=== PATIENT | female | born 1950 | race Caucasian/White ===

== ENCOUNTER → 2016-11-02 | Outpatient (REF) | payer MEDICARE ==
[2016-11-05 00:06] LABS: Lyme Disease IgG/IgM Antibodie <0.91 ISR (0.00-0.90); Lyme Disease IgM Ab Quantitati <0.80 index (0.00-0.79); SJOGREN'S ANTI SS-A <0.2 AI (0.0-0.9); SJOGREN'S ANTI SS-B <0.2 AI (0.0-0.9)
== END ==
LOC: M LAB REF 17:11
PROVIDERS: ATTEND Nurse Practitioner Adult Health
DX: I73.00 Raynaud's syndrome without gangrene (principal); Z98.0 Intestinal bypass and anastomosis status; Z79.899 Other long term (current) drug therapy

== ENCOUNTER → 2016-11-22 | Outpatient (REF) | payer MEDICARE | LOC: M LAB REF 14:57 | PROVIDERS: ATTEND Nurse Practitioner Adult Health | DX: R10.9 Unspecified abdominal pain (principal); R19.7 Diarrhea, unspecified ==

== ENCOUNTER → 2018-06-18 | Outpatient (REF) | payer MEDICARE ==
[2018-06-18 18:16] LABS: FREE T3 2.9 PG/ML (2.2-4.0)
== END ==
LOC: M LAB REF 17:03
DX: E03.9 Hypothyroidism, unspecified (principal)
CPT/HCPCS: 84481

== ENCOUNTER → 2018-09-10 | Outpatient (REF) | payer MEDICARE | LOC: M LAB REF 12:14 | PROVIDERS: ATTEND Nurse Practitioner Adult Health | DX: R31.9 Hematuria, unspecified (principal); N39.0 Urinary tract infection, site not specified ==

== ENCOUNTER → 2018-11-06 | Outpatient (REF) | payer MEDICARE | LOC: M LAB REF 16:48 | PROVIDERS: ATTEND Internal Medicine | DX: N20.0 Calculus of kidney (principal) ==

== ENCOUNTER → 2018-11-06 | Outpatient (REF) | payer MEDICARE ==
[2018-11-06 13:40] LABS: INR 0.89; PROTHROMBIN TIME 12.1 SECONDS (12.1-14.4)
[2018-11-06 13:41] LABS: PARTIAL THROMBOPLASTIN TIME 26.6 SECONDS (25.4-37.6)
[2018-11-06 13:43] LABS: APPEARANCE, URINE CLEAR (CLEAR); BACTERIA, URINE AUTO NEGATIVE (NEGATIVE); BILIRUBIN, URINE AUTO NEGATIVE (NEGATIVE); BLOOD, URINE BLOOD 2+ (NEGATIVE); COLOR, URINE STRAW (YELLOW); GLUCOSE, URINE (UA) AUTO NEGATIVE (NEGATIVE); KETONE, URINE AUTO NEGATIVE (NEGATIVE); LEUKOCYTE ESTERASE, URINE AUTO NEGATIVE (NEGATIVE); MUCUS, URINE SMALL (NEGATIVE); NITRITE, URINE AUTO NEGATIVE (NEGATIVE); PROTEIN, URINE AUTO NEGATIVE (NEGATIVE); RBC, URINE AUTO 29 /HPF (0-3); SPECIFIC GRAVITY URINE AUTO 1.006 (1.002-1.035); SQUAMOUS EPITHELIAL CELL UR AU 0 /HPF (0-6); UROBILINOGEN, URINE AUTO 0.2 mg/dL (0.0-2.0); WBC, URINE AUTO 1 /HPF (0-3)
== END ==
LOC: M LAB REF 12:21
PROVIDERS: ATTEND Internal Medicine
DX: Z01.818 Encounter for other preprocedural examination (principal)

== ENCOUNTER → 2019-11-04 | Outpatient (REF) | payer MEDICARE ==
[2019-11-04 12:22] LABS: HEMATOCRIT 38.3 % (36.0-47.0); HEMOGLOBIN 12.9 g/dl (12.0-15.5); MEAN CORPUSCULAR HEMOGLOBIN 32.3 pg (27.0-33.0); MEAN CORPUSCULAR HGB CONC 33.7 g/dl (32.0-36.5); MEAN CORPUSCULAR VOLUME 95.8 fl (80.0-96.0); PLATELET COUNT, AUTOMATED 240 10^3/uL (150-450); WHITE BLOOD COUNT 5.7 10^3/uL (4.0-10.0)
[2019-11-04 12:37] LABS: ALBUMIN 3.8 GM/DL (3.2-5.2); BILIRUBIN,TOTAL 0.6 MG/DL (0.2-1.0); CALCIUM LEVEL 9.2 MG/DL (8.8-10.2); CREATININE FOR GFR 1.36 MG/DL (0.55-1.30); GLOMERULAR FILTRATION RATE 40.9 (>39); POTASSIUM SERUM 4.1 MEQ/L (3.5-5.1); THYROID STIMULATING HORMONE 16.5 uIU/ML (0.358-3.740); TOTAL 25(OH) VITAMIN D 45.3 NG/ML (30.0-100.0); TOTAL PROTEIN 7.4 GM/DL (6.4-8.2)
== END ==
LOC: M SFHCPLAZ 10:02
PROVIDERS: ATTEND Nurse Practitioner Family
DX: E03.9 Hypothyroidism, unspecified (principal); E55.9 Vitamin D deficiency, unspecified; K14.6 Glossodynia; Z98.84 Bariatric surgery status; M25.511 Pain in right shoulder; Z79.899 Other long term (current) drug therapy

== ENCOUNTER → 2019-11-26 | Outpatient (REF) | payer MEDICARE ==
[2019-11-26 15:02] LABS: ALBUMIN 4.1 GM/DL (3.2-5.2); BILIRUBIN,TOTAL 0.6 MG/DL (0.2-1.0); CALCIUM LEVEL 9.5 MG/DL (8.8-10.2); CHOLESTEROL RISK RATIO 2.582 (<5); CREATININE FOR GFR 1.05 MG/DL (0.55-1.30); FREE T4 1.17 NG/DL (0.76-1.46); GLOMERULAR FILTRATION RATE 55.2 (>39); PERCENT SATURATION 21.1 % (13.2-45.0); POTASSIUM SERUM 4.1 MEQ/L (3.5-5.1); THYROID STIMULATING HORMONE 1.25 uIU/ML (0.358-3.740); TOTAL PROTEIN 7.8 GM/DL (6.4-8.2)
[2019-11-26 16:13] LABS: HEMOGLOBIN A1c 5.4 %
== END ==
LOC: M SFHCPLAZ 12:04
PROVIDERS: ATTEND Nurse Practitioner Family
DX: Z00.00 Encounter for general adult medical examination without abnormal findings (principal); E03.9 Hypothyroidism, unspecified; E11.9 Type 2 diabetes mellitus without complications; Z13.220 Encounter for screening for lipoid disorders; Z98.84 Bariatric surgery status

== ENCOUNTER → 2019-12-06 | Outpatient (REF) | payer MEDICARE ==
[2019-12-06 15:07] LABS: CREATININE, URINE 22.6 MG/DL; MALB URINE SIEMENS < 5.0 MG/L; MAU/CREAT RATIO 22.1 MCG/MG (0.0-30.0)
== END ==
LOC: M SFHCPLAZ 12:46
PROVIDERS: ATTEND Nurse Practitioner Family
DX: E03.9 Hypothyroidism, unspecified (principal)

== ENCOUNTER → 2019-12-17 | Outpatient (CLI) | payer MEDICARE ==
[2019-12-17 14:09] LABS: HEMATOCRIT 38.4 % (36.0-47.0); HEMOGLOBIN 12.8 g/dl (12.0-15.5); MEAN CORPUSCULAR HEMOGLOBIN 31.5 pg (27.0-33.0); MEAN CORPUSCULAR HGB CONC 33.3 g/dl (32.0-36.5); MEAN CORPUSCULAR VOLUME 94.6 fl (80.0-96.0); PLATELET COUNT, AUTOMATED 246 10^3/uL (150-450); RED BLOOD COUNT 4.06 10^6/uL (4.00-5.40); WHITE BLOOD COUNT 5.1 10^3/uL (4.0-10.0)
[2019-12-17 14:43] LABS: FREE T4 1.08 NG/DL (0.76-1.46); IRON (FE) 67 UG/DL (50-170); THYROID STIMULATING HORMONE 0.918 uIU/ML (0.358-3.740)
[2019-12-17 14:45] LABS: ESTRADIOL < 19.0 PG/ML; VITAMIN B12 LEVEL 972 PG/ML
[2019-12-17 14:46] LABS: FOLATE > 24.0 NG/ML
== END ==
LOC: M PLALAB 12:17
DX: K14.0 Glossitis (principal)

== ENCOUNTER → 2020-01-06 | Outpatient (REF) | payer MEDICARE | LOC: M LAB REF 17:11 | PROVIDERS: ATTEND Physician Assistant | DX: L91.8 Other hypertrophic disorders of the skin (principal) | CPT/HCPCS: 11200; 88305; G0463 ==

== ENCOUNTER → 2020-03-30 | Outpatient (CLI) | payer MEDICARE ==
[2020-03-30 14:48] LABS: ALBUMIN 3.7 GM/DL (3.2-5.2); ALT/SGPT 31 U/L (12-78); BILIRUBIN,TOTAL 0.4 MG/DL (0.2-1.0); BLOOD UREA NITROGEN 24 MG/DL (7-18); C REACTIVE PROTEIN QUANTITATIV 0.33 MG/DL (0.00-0.30); CALCIUM LEVEL 9.2 MG/DL (8.8-10.2); CARBON DIOXIDE LEVEL 34 MEQ/L (21-32); CHLORIDE LEVEL 84 MEQ/L (98-107); CREATININE FOR GFR 1.01 MG/DL (0.55-1.30); GLOMERULAR FILTRATION RATE 57.7 (>39); GLUCOSE, FASTING 116 MG/DL (70-100); POTASSIUM SERUM 3.1 MEQ/L (3.5-5.1); RHEUMATOID FACTOR QUANT < 10.0 IU/ML (<15.0); SODIUM LEVEL 125 MEQ/L (136-145); THYROID STIMULATING HORMONE 0.054 uIU/ML (0.358-3.740); TOTAL PROTEIN 7.1 GM/DL (6.4-8.2)
[2020-03-31 16:22] LABS: ANTINUCLEAR ANTIBODIES DIRECT Negative (Negative); SJOGREN'S ANTI SS-A <0.2 AI (0.0-0.9); SJOGREN'S ANTI SS-B <0.2 AI (0.0-0.9)
== END ==
LOC: M PLALAB 12:08
PROVIDERS: ATTEND Nurse Practitioner Adult Health
DX: R68.2 Dry mouth, unspecified (principal); E03.9 Hypothyroidism, unspecified; K14.9 Disease of tongue, unspecified; I10 Essential (primary) hypertension

== ENCOUNTER → 2020-06-08 | Outpatient (REF) | payer MEDICARE ==
[2020-06-08 14:18] LABS: ALBUMIN 3.7 GM/DL (3.2-5.2); BILIRUBIN,TOTAL 0.8 MG/DL (0.2-1.0); CREATININE FOR GFR 0.99 MG/DL (0.55-1.30); POTASSIUM SERUM 5.4 MEQ/L (3.5-5.1); THYROID STIMULATING HORMONE 4.38 uIU/ML (0.358-3.740); TOTAL PROTEIN 6.6 GM/DL (6.4-8.2)
== END ==
LOC: M SFHCPLAZ 10:03
PROVIDERS: ATTEND Nurse Practitioner Adult Health
DX: I10 Essential (primary) hypertension (principal); E03.9 Hypothyroidism, unspecified

== ENCOUNTER → 2020-06-30 | Outpatient (REF) | payer MEDICARE ==
[2020-06-30 12:35] LABS: ALBUMIN 4.1 GM/DL (3.2-5.2); BILIRUBIN,TOTAL 0.6 MG/DL (0.2-1.0); CALCIUM LEVEL 9.6 MG/DL (8.8-10.2); CREATININE FOR GFR 1.39 MG/DL (0.55-1.30); GLOMERULAR FILTRATION RATE 39.9 (>39); POTASSIUM SERUM 4.5 MEQ/L (3.5-5.1)
== END ==
LOC: M SFHCPLAZ 09:24
PROVIDERS: ATTEND Nurse Practitioner Adult Health
DX: I10 Essential (primary) hypertension (principal)

== ENCOUNTER 2020-07-16 09:27 | Outpatient (CLI) | payer MEDICARE ==
[2020-07-16] MEDS ORDERED: D5W IV ONE (09:30)
[2020-07-16] MEDS ORDERED: MAG SULF 1GM/100ML (MAG RUN) SINGLE DOSE IV ONE ×2 (09:30)
[2020-07-16] MEDS ORDERED: D5W/0.45% SODIUM CHLORIDE 1,000 ML IV SCH (09:30)
[2020-07-16] MEDS ORDERED: ONDANSETRON 4MG/2ML VIAL IV ONE (09:30)
[2020-07-16] MEDS ORDERED: diphenhydrAMINE 50MG/ML VIAL (J1200) IV ONE (09:30)
[2020-07-16] MEDS ORDERED: KETOROLAC 30 MG/ML 1ML VIAL IV ONE (09:30)
[2020-07-16] MEDS ORDERED: VALPROATE SOD IV ONE (09:30)
[2020-07-16 10:35] VITALS: BP 140/96
[2020-07-16 11:32] VITALS: BP 110/56
== END 2020-07-16 15:10 | disposition home or self-care (01) ==
LOC: M INFU 09:27
PROVIDERS: ATTEND Psychiatry & Neurology Neurology
DX: G43.109 Migraine with aura, not intractable, without status migrainosus (principal); Z88.2 Allergy status to sulfonamides
CPT/HCPCS: 96365; 96366; 96367; 96375; J1100; J1200; J1885; J2405; J3475

== ENCOUNTER → 2020-09-29 | Outpatient (REF) | payer MEDICARE ==
[2020-09-29 14:17] LABS: HEMATOCRIT 40.3 % (36.0-47.0); HEMOGLOBIN 13.2 g/dl (12.0-15.5); MEAN CORPUSCULAR HGB CONC 32.8 g/dl (32.0-36.5); MEAN CORPUSCULAR VOLUME 97.8 fl (80.0-96.0); PLATELET COUNT, AUTOMATED 254 10^3/uL (150-450); RED BLOOD COUNT 4.12 10^6/uL (4.00-5.40); WHITE BLOOD COUNT 6.4 10^3/uL (4.0-10.0)
[2020-09-29 14:53] LABS: ALBUMIN 3.9 GM/DL (3.2-5.2); BILIRUBIN,TOTAL 0.4 MG/DL (0.2-1.0); CREATININE FOR GFR 1.09 MG/DL (0.55-1.30); GLOMERULAR FILTRATION RATE 52.7 (>39); PERCENT SATURATION 23.8 % (13.2-45.0); POTASSIUM SERUM 4.5 MEQ/L (3.5-5.1); THYROID STIMULATING HORMONE 0.882 uIU/ML (0.358-3.740); TOTAL PROTEIN 7.3 GM/DL (6.4-8.2)
== END ==
LOC: M SFHCPLAZ 11:14
PROVIDERS: ATTEND Nurse Practitioner Adult Health
DX: E55.9 Vitamin D deficiency, unspecified (principal); I10 Essential (primary) hypertension; E03.9 Hypothyroidism, unspecified; Z98.84 Bariatric surgery status; M25.511 Pain in right shoulder

== ENCOUNTER → 2021-01-01 | Outpatient (CLI) | payer MEDICARE ==
--- NOTE | 2021-01-01 15:29 | REPPI ---
INDICATION: ATRAUMATIC NECK PAIN COMPARISON: None. TECHNIQUE: Eight views FINDINGS: There is advanced disc space narrowing seen C5-6 C6-7 with heavy anterior and posterior osteophytic ridging. There is some evidence of limitation of flexion and extension. The facet joints appear to be well aligned bilaterally. Hypertrophic degenerative facet and uncovertebral joint changes are present at every level bilaterally. There is bilateral foraminal narrowing C3-4, C4-5, and C5-6 which is mild to moderate and seen particularly at C5-6 on the left. Vertebral body height and alignment appears to be within normal limits. The dens cannot be effectively evaluated secondary to the superimposition of osseous structures and/or dentition on all views. IMPRESSION: Chronic changes as described above. Although this plain radiographic evaluation of the cervical spine shows no evidence of a fracture, it should be remembered that CT is much more sensitive than plain radiography of the C-spine in detecting fractures. If this examination was ordered to rule out a fracture then CT of the cervical spine is recommended. <Electronically signed by Delvin Bahena > 01/01/21 [id number]
== END ==
LOC: M PLAIMG 14:13
PROVIDERS: ATTEND Nurse Practitioner Adult Health
DX: M48.02 Spinal stenosis, cervical region (principal); M25.78 Osteophyte, vertebrae

== ENCOUNTER → 2021-01-01 | Outpatient (REF) | payer MEDICARE ==
[2021-01-01 17:13] LABS: HEMATOCRIT 37.2 % (36.0-47.0); HEMOGLOBIN 11.9 g/dl (12.0-15.5); MEAN CORPUSCULAR HEMOGLOBIN 32.9 pg (27.0-33.0); MEAN CORPUSCULAR VOLUME 102.8 fl (80.0-96.0); PLATELET COUNT, AUTOMATED 210 10^3/uL (150-450); RED BLOOD COUNT 3.62 10^6/uL (4.00-5.40); WHITE BLOOD COUNT 5.3 10^3/uL (4.0-10.0)
[2021-01-01 17:37] LABS: ALBUMIN 3.8 GM/DL (3.2-5.2); BILIRUBIN,TOTAL 0.4 MG/DL (0.2-1.0); CALCIUM LEVEL 8.6 MG/DL (8.8-10.2); CREATININE FOR GFR 1.16 MG/DL (0.55-1.30); PERCENT SATURATION 17.9 % (13.2-45.0); POTASSIUM SERUM 5.1 MEQ/L (3.5-5.1); TOTAL PROTEIN 6.8 GM/DL (6.4-8.2)
[2021-01-01 17:38] LABS: TOTAL 25(OH) VITAMIN D 29.6 NG/ML (30.0-100.0)
[2021-01-04 13:08] LABS: SSA SJOGRENS A <0.2 AI (0.0-0.9); SSB SJOGRENS B <0.2 AI (0.0-0.9)
== END ==
LOC: M SFHCPLAZ 14:15
PROVIDERS: ATTEND Nurse Practitioner Adult Health
DX: R68.2 Dry mouth, unspecified (principal); Z98.84 Bariatric surgery status; E55.9 Vitamin D deficiency, unspecified; E03.9 Hypothyroidism, unspecified; I10 Essential (primary) hypertension; Z79.899 Other long term (current) drug therapy

== ENCOUNTER → 2021-02-26 | Outpatient (CLI) | payer MEDICARE ==
[2021-02-26 13:58] LABS: ALBUMIN 3.6 GM/DL (3.2-5.2); BILIRUBIN,TOTAL 0.9 MG/DL (0.2-1.0); CALCIUM LEVEL 8.6 MG/DL (8.8-10.2); CREATININE FOR GFR 1.01 MG/DL (0.55-1.30); GLOMERULAR FILTRATION RATE 57.5 (>39); POTASSIUM SERUM 4.7 MEQ/L (3.5-5.1); TOTAL PROTEIN 6.9 GM/DL (6.4-8.2)
== END ==
LOC: M PLALAB 12:10
PROVIDERS: ATTEND Nurse Practitioner Adult Health
DX: R60.0 Localized edema (principal)

== ENCOUNTER → 2021-03-17 | Outpatient (CLI) | payer MEDICARE ==
--- NOTE | 2021-03-17 15:48 | REPMRS ---
Patient History The patient states she has not had a clinical breast exam in over a year. Patient is postmenopausal and is nulliparous. Family history of breast cancer at age 70 in maternal aunt. Reductions of both breasts, 1989. Patient states no breast complaints today. Patient has signed MRS History Sheet. Digital Woman Screen Mammo: March 17, 2021 - Exam #: [id number] Bilateral CC and MLO view(s) were taken. Technologist: Linda Torres, Technologist Prior study comparison: April 29, 2014, bilateral bilat screen digital mammo, performed at [facility] ([facility]). March 08, 2012, bilateral digital mammo screening bilat, performed at [facility]. FINDINGS: There are scattered fibroglandular densities. Screening. Digital screening (2D) mammography was performed bilaterally in the CC and MLO projections. Additionally, breast tomosynthesis (3D mammography) was performed bilaterally in the CC and MLO projections. Todays exam was compared to the prior exam/exams. By history, the patient has no complaints of a palpable breast abnormality or other significant breast complaints. The breasts are unchanged in size and shape. There are no sohail-soft tissue densities or spiculated masses. There is no internal architectural distortion. Once again, stable benign appearing calcifications are seen.There are no suspicious sohail-calcific clusters. Skin thickening or nipple retraction is not present. IMPRESSION: BI-RADS Category 2- Benign Findings. There is no evidence of malignant alteration of the breasts. Followup examination recommended in one year. The Volpara volumetric breast density category is B, there are scattered areas of fibroglandular densities. This mammogram was read with the assistance of [facility],an FDA approved computer aided detection system for mammography. The lifetime Tyrer-Cuzick score is 6.1 % Negative x-ray reports should not delay surgical consultation if a dominant or clinically suspicious mass is present. Not all breast cancers can be identified by mammography. Therefore, we recommend that you continue to perform regular breast self-examination and physical examination and then promptly contact your physician of any concerns or changes. Adenosis and dense breasts may obscure an underlying neoplasm. Assessment: BI-RADS/ACR category 2 mammogram. Benign Findings. Recommendation Routine screening mammogram of both breasts in 1 year. Electronically Signed By: Delvin Bahena DO 03/17/21 1545
== END ==
LOC: M WHC 14:01
PROVIDERS: ATTEND Nurse Practitioner Family
DX: Z12.31 Encounter for screening mammogram for malignant neoplasm of breast (principal)

== ENCOUNTER 2021-04-06 13:19 | Outpatient (RCR) | payer MEDICARE | END 2021-04-08 | LOC: M PT 13:19 | PROVIDERS: ATTEND Nurse Practitioner Adult Health | DX: I89.0 Lymphedema, not elsewhere classified (principal) ==

== ENCOUNTER 2021-04-27 13:14 | Outpatient (RCR) | payer MEDICARE | END 2021-05-09 | LOC: M PT 13:14 | PROVIDERS: ATTEND Nurse Practitioner Adult Health | DX: I89.0 Lymphedema, not elsewhere classified (principal) ==

== ENCOUNTER → 2021-05-18 | Outpatient (CLI) | payer MEDICARE ==
[2021-05-18 14:05] LABS: HEMATOCRIT 38.9 % (36.0-47.0); MEAN CORPUSCULAR HEMOGLOBIN 32.5 pg (27.0-33.0); MEAN CORPUSCULAR HGB CONC 33.4 g/dl (32.0-36.5); MEAN CORPUSCULAR VOLUME 97.3 fl (80.0-96.0); PLATELET COUNT, AUTOMATED 241 10^3/uL (150-450); WHITE BLOOD COUNT 5.7 10^3/uL (4.0-10.0)
[2021-05-18 15:03] LABS: PERCENT SATURATION 24.4 % (13.2-45.0); THYROID STIMULATING HORMONE 3.49 uIU/ML (0.358-3.740); TOTAL 25(OH) VITAMIN D 80.2 NG/ML (30.0-100.0)
== END ==
LOC: M PLALAB 10:51
PROVIDERS: ATTEND Nurse Practitioner Adult Health
DX: E55.9 Vitamin D deficiency, unspecified (principal); Z98.84 Bariatric surgery status; E03.9 Hypothyroidism, unspecified

== ENCOUNTER → 2021-05-18 | Outpatient (CLI) | payer MEDICARE ==
--- NOTE | 2021-05-18 12:51 | REPVR ---
PROCEDURE INFORMATION: Exam: MR Lumbar Spine Without Contrast Exam date and time: 05/18/2021 10:23 AM Age: 70 years old Clinical indication: Low back pain; Additional info: Radiculopathy TECHNIQUE: Imaging protocol: Multiplanar magnetic resonance images of the lumbar spine without intravenous contrast. COMPARISON: No relevant prior studies available. FINDINGS: Vertebrae: There is 3 mm of grade 1 retrolisthesis of L3 with respect to L4. There is 4 mm of grade 1 anterolisthesis of L4 with respect to L5. Normal vertebral body alignment is otherwise preserved. Vertebral body heights are within normal limits. Spinal cord: Normal signal. No cord compression. L1-L2: There is shallow disc bulging. There is mild facet hypertrophy. The spinal canal and neural foramina are patent. L2-L3: There is shallow disc bulging. There is moderate facet hypertrophy. There is trace fluid within the facet joints. There is mild right neural foraminal narrowing. L3-L4: There is diffuse disc bulging. There is moderate facet hypertrophy. There is moderate right and mild left neural foraminal narrowing. L4-L5: There is a diffuse disc bulge/uncovering related to listhesis. There is severe facet hypertrophy. There is severe canal stenosis, with a residual diameter of 3 mm. There is moderate to severe bilateral neural foraminal narrowing. L5-S1: There is shallow disc bulging. There is severe facet hypertrophy. There is mild right neural foraminal narrowing. Soft tissues: Unremarkable. IMPRESSION: Degenerative disc disease and spondylosis. At L4/5, changes contribute to severe acquired canal stenosis as well as moderate to severe bilateral neural foraminal narrowing. Electronically signed by: Emilia Hayden On 05/18/2021 12:51:25 PM
== END ==
LOC: M PLAIMG 09:28
PROVIDERS: ATTEND Pain Medicine Interventional Pain Medicine
DX: M54.16 Radiculopathy, lumbar region (principal); M43.16 Spondylolisthesis, lumbar region; M48.061 Spinal stenosis, lumbar region without neurogenic claudication; M51.27 Other intervertebral disc displacement, lumbosacral region; M51.36 Other intervertebral disc degeneration, lumbar region; M48.07 Spinal stenosis, lumbosacral region

== ENCOUNTER → 2021-05-18 | Outpatient (CLI) | payer MEDICARE ==
--- NOTE | 2021-05-18 14:21 | REP ---
INDICATION: SHORTNESS OF BREATH. COMPARISON: None. TECHNIQUE: PA and lateral FINDINGS: The superior mediastinal structures are midline. The cardiac silhouette is unremarkable in size, shape, and position. The diaphragmatic surfaces of the lungs are regular, and the costophrenic angles are clear. The pulmonary valdes are clear. The imaged osseous structures are intact. There is a right shoulder arthroplasty. IMPRESSION: There is no acute cardiopulmonary disease. <Electronically signed by Delvin Bahena > 05/18/21 0072
== END ==
LOC: M PLAIMG 09:37
PROVIDERS: ATTEND Nurse Practitioner Adult Health
DX: R06.02 Shortness of breath (principal)

== ENCOUNTER → 2021-05-24 | Outpatient (CLI) | payer MEDICARE ==
--- NOTE | 2021-05-24 15:48 | PFTRPT ---
Site: [facility], [address] [place] [address], [id number] ID: [id number] Name: KARLA BLACK Visit Date: 05/24/2021 Second ID: [id number] Referring Doctor: Nelda Thornton Reviewing Doctor: Marcelino Graves MD Compensation And Hris Analyst: Jac CHENEY RRT Age: 70 : 1950 Sex: Female Race: Height: 66.00 Inches Weight: 226.00 Lbs BSA: 2.11 Order IDs: [id number] Requested Test(s): <RESP-PFT.PFT B/A> Diagnosis: R06.02 test meet the ATS standards for acceptability and repeatability. Pt was given four puffs of albuterol for post bronchodilator. Review Status: Not Reviewed Pre-Bronch Post-Bronch Pred Actual %Pred Actual %Chng SPIROMETRY FVC (L) 3.18 2.41 75 2.45 1 FEV1 (L) 2.40 1.93 80 2.05 5 FEV1/FVC (%) 76 80 105 84 3 FEF 25% (L/sec) 4.90 5.78 117 6.27 8 FEF 50% (L/sec) 3.29 2.73 82 3.76 37 FEF 75% (L/sec) 0.94 0.66 70 0.85 29 FEF 25-75% (L/sec) 1.93 1.88 97 2.49 32 FEF Max (L/sec) 5.81 6.04 103 6.97 15 FIVC (L) 2.44 2.33 -4 FIF 50% (L/sec) 3.60 3.32 92 4.59 38 FIF Max (L/sec) 3.49 4.76 36 MVV (L/min) 89 76 85 Expiratory Time (sec) 6.46 6.06 -6 Back Extrap Vol (L) 0.09 0.10 8 Time To FEFmax (sec) 0.084 0.082 -2 LUNG VOLUMES SVC (L) 3.02 2.45 81 IC (L) 2.27 1.86 81 ERV (L) 0.75 0.59 79 TGV (L) 3.08 3.08 100 RV (Pleth) (L) 2.33 2.49 106 TLC (Pleth) (L) 5.35 4.94 92 RV/TLC (Pleth) (%) 44 50 114 DIFFUSION DLCOunc (ml/min/mmHg) 21.12 21.43 101 DL/VA (ml/min/mmHg/L) 3.95 5.20 131 VA (L) 5.35 4.12 76 BHT (sec) 9.73 IVC (L) 2.26 TLC (SB) (L) 4.27 AIRWAYS RESISTANCE Raw (cmH2O/L/s) 1.86 0.90 48 Gaw (L/s/cmH2O) 1.03 1.14 110 sRaw (cmH2O*s) 4.76 2.84 59 sGaw (1/cmH2O*s) 0.20 0.36 179
--- NOTE | 2021-05-25 09:18 | ECHO ---
ECHOCARDIOGRAM DATE OF PROCEDURE: 05/24/2021 Age: 70 Gender: Female Height: 66 inches Weight: 229 pounds Body Surface Area: 2.12 m2 PATIENT LOCATION: Outpatient. REFERRING PROVIDER: Nelda Lambert, Adult Nurse Practitioner. INDICATION: Shortness of breath. MEASUREMENTS: 2D Measurements: RV 3.8 cm LV 4.7 cm Septum 1.0 cm Posterior wall 1.0 cm Aortic Root 3.0 cm LA 4.2 cm LVEF 75% Doppler Measurements: AV 1.58 m/s LVOT 1.32 m/s MV-E 102, A 128, EA ratio 0.8 Early mitral deceleration time 148 msec E prime medial 9.9, A prime medial 17, E prime lateral 7.8 Average E/E prime ratio 11.5/PCWP 16.2 mmHg PV - 0.8 m/s Pulmonary artery acceleration time 92 msec PASP 42 mmHg IVC 2.2 cm COMMENTS: Normal sinus rhythm without intraventricular conduction disturbance. M-mode and 2-dimensional echocardiography was performed with pulse, continuous wave, color flow, and tissue Doppler studies. Normal left ventricular size, wall thickness, and hyperkinetic wall motion. Mildly dilated left atrium with grade 1 LV diastolic dysfunction and current estimated mean left atrial pressure upper limits of normal. Normal right heart chamber sizes and wall motion with Doppler evidence of moderate pulmonary hypertension. IVC size was upper limits of normal to mildly dilated with adequate respiratory collapse in keeping with estimated central venous pressure upper limits of normal. Normal aortic dimensions. Mild aortic valvular sclerosis without stenosis and only trace insufficiency. Moderate mitral annular calcification without inflow tract obstruction and mild mitral insufficiency. Normal appearing tricuspid valve with trace insufficiency. No apparent intracardiac mass or pericardial effusion.
== END ==
LOC: M CARPUL 08:34
PROVIDERS: ATTEND Nurse Practitioner Adult Health
DX: R06.02 Shortness of breath (principal)

== ENCOUNTER → 2021-05-31 | Outpatient (CLI) | payer MEDICARE ==
[~2021-05-31] MED LIST: METHACHOLINE KIT (J7674) INH ONE
--- NOTE | 2021-05-31 10:48 | PFTRPT ---
Site: [facility], [address] [place], [address] ID: [id number] Name: KARLA BLACK Visit Date: 05/31/2021 Second ID: [id number] Referring Doctor: Nelda Thornton Reviewing Doctor: Marcelino Graves MD Learning Coordinator: Jac CHENEY RRT Age: 70 : 1950 Sex: Female Race: Height: 66.00 Inches Weight: 226.00 Lbs BSA: 2.11 Order IDs: [id number] Requested Test(s): <RESP-PFT.METH CHAL> Diagnosis: R06.02 of albuterol for post bronchodilator. Review Status: Not Reviewed Pre-Bronch Post-Bronch Pred Actual %Pred Actual %Chng SPIROMETRY FVC (L) 3.18 2.33 73 2.25 -3 FEV1 (L) 2.40 1.94 80 1.84 -5 FEV1/FVC (%) 76 83 109 82 -2 FEF 25% (L/sec) 4.90 6.21 126 5.70 -8 FEF 50% (L/sec) 3.29 3.20 97 2.25 -29 FEF 75% (L/sec) 0.94 0.82 86 0.51 -36 FEF 25-75% (L/sec) 1.93 2.25 116 1.68 -25 FEF Max (L/sec) 5.81 6.26 107 6.05 -3 FIVC (L) 2.38 1.75 -26 FIF 50% (L/sec) 3.60 3.90 108 2.67 -31 FIF Max (L/sec) 4.00 3.49 -12 Expiratory Time (sec) 6.68 7.03 5 Back Extrap Vol (L) 0.09 0.08 -11 Time To FEFmax (sec) 0.087 0.071 -19
== END ==
LOC: M CARPUL 10:00
PROVIDERS: ATTEND Nurse Practitioner Adult Health
DX: R06.02 Shortness of breath (principal)
CPT/HCPCS: 94070; 95070; J7674

== ENCOUNTER → 2021-09-23 | Outpatient (CLI) | payer MEDICARE | LOC: M PLAIMG 16:05 | PROVIDERS: ATTEND Internal Medicine Hematology | DX: M25.512 Pain in left shoulder (principal) ==

== ENCOUNTER → 2021-11-17 | Outpatient (CLI) | payer MEDICARE ==
[2021-11-17 15:22] LABS: HEMATOCRIT 37.4 % (36.0-47.0); HEMOGLOBIN 12.5 g/dl (12.0-15.5); MEAN CORPUSCULAR HEMOGLOBIN 33.1 pg (27.0-33.0); MEAN CORPUSCULAR HGB CONC 33.4 g/dl (32.0-36.5); MEAN CORPUSCULAR VOLUME 98.9 fl (80.0-96.0); PLATELET COUNT, AUTOMATED 234 10^3/uL (150-450); RED BLOOD COUNT 3.78 10^6/uL (4.00-5.40); WHITE BLOOD COUNT 4.1 10^3/uL (4.0-10.0)
[2021-11-17 15:56] LABS: BILIRUBIN,TOTAL 0.8 MG/DL (0.2-1.0); CALCIUM LEVEL 9.5 MG/DL (8.8-10.2); CHOLESTEROL RISK RATIO 1.481 (<5); CREATININE FOR GFR 1.21 MG/DL (0.55-1.30); GLOMERULAR FILTRATION RATE 46.6 (>39); PERCENT SATURATION 38.3 % (13.2-45.0); POTASSIUM SERUM 4.8 MEQ/L (3.5-5.1); THYROID STIMULATING HORMONE 1.2 uIU/ML (0.358-3.740); TOTAL PROTEIN 7.3 GM/DL (6.4-8.2)
[2021-11-17 15:57] LABS: TOTAL 25(OH) VITAMIN D 86.3 NG/ML (30.0-100.0)
== END ==
LOC: M PLALAB 13:08
PROVIDERS: ATTEND Nurse Practitioner Adult Health
DX: Z00.00 Encounter for general adult medical examination without abnormal findings (principal); Z98.84 Bariatric surgery status; E03.9 Hypothyroidism, unspecified; E55.9 Vitamin D deficiency, unspecified; I10 Essential (primary) hypertension; Z79.899 Other long term (current) drug therapy

== ENCOUNTER → 2021-12-17 | Outpatient (CLI) | payer MEDICARE ==
[~2021-12-17] MED LIST changes: +ISOVUE-370 76% 100ML VIAL ONE; -METHACHOLINE KIT (J7674) INH ONE
== END ==
LOC: M PLAIMG 09:40
PROVIDERS: ATTEND Nurse Practitioner Adult Health
DX: R09.02 Hypoxemia (principal)
CPT/HCPCS: 71275; Q9967

== ENCOUNTER → 2022-04-19 | Outpatient (CLI) | payer MEDICARE ==
[2022-04-19 14:11] LABS: ALBUMIN 3.7 GM/DL (3.2-5.2); BILIRUBIN,TOTAL 0.5 MG/DL (0.2-1.0); CALCIUM LEVEL 9.6 MG/DL (8.8-10.2); CREATININE FOR GFR 1.13 MG/DL (0.55-1.30); GLOMERULAR FILTRATION RATE 50.4 (>39); POTASSIUM SERUM 4.3 MEQ/L (3.5-5.1); TOTAL PROTEIN 6.9 GM/DL (6.4-8.2)
== END ==
LOC: M PLALAB 11:01
PROVIDERS: ATTEND Nurse Practitioner Adult Health
DX: R06.02 Shortness of breath (principal); I10 Essential (primary) hypertension

== ENCOUNTER → 2022-07-13 | Outpatient (CLI) | payer MEDICARE ==
[2022-07-13 15:37] LABS: HEMATOCRIT 37.1 % (36.0-47.0); HEMOGLOBIN 12.5 g/dl (12.0-15.5); MEAN CORPUSCULAR HEMOGLOBIN 33.7 pg (27.0-33.0); MEAN CORPUSCULAR HGB CONC 33.7 g/dl (32.0-36.5); PLATELET COUNT, AUTOMATED 236 10^3/uL (150-450); RED BLOOD COUNT 3.71 10^6/uL (4.00-5.40); WHITE BLOOD COUNT 4.9 10^3/uL (4.0-10.0)
[2022-07-13 16:11] LABS: MAGNESIUM LEVEL 1.9 MG/DL (1.8-2.4)
[2022-07-13 16:12] LABS: IRON (FE) 77 UG/DL (50-170); PERCENT SATURATION 22.2 % (13.2-45.0); TOTAL IRON BINDING CAPACITY 347 UG/DL (250-425)
[2022-07-13 16:13] LABS: ALBUMIN 3.5 G/DL (3.2-5.2); ALKALINE PHOSPHATASE 106 U/L (46-116); ALT/SGPT 18 U/L (7.0-40); AST/SGOT 27 U/L (<34); BILIRUBIN,TOTAL 0.5 MG/DL (0.3-1.2); BLOOD UREA NITROGEN 32 MG/DL (9-23); CALCIUM LEVEL 9.3 MG/DL (8.3-10.6); CARBON DIOXIDE LEVEL 34 MMOL/L (20-31); CHLORIDE LEVEL 95 MMOL/L (98-107); CHOLESTEROL LEVEL 151 MG/DL (<200); CREATININE FOR GFR 1.13 MG/DL (0.55-1.30); FERRITIN 43.6 NG/ML (7.3-270.7); GLOMERULAR FILTRATION RATE 50.2 (>39); GLUCOSE, FASTING 130 MG/DL (74-106); HDL CHOLESTEROL 88.5 MG/DL (>40); LDL CHOLESTEROL 45.9 MG/DL (<100); NON-HDL-C 63 MG/DL; PHOSPHORUS LEVEL 3.8 MG/DL (2.4-5.1); POTASSIUM SERUM 3.9 MMOL/L (3.5-5.1); PTH INTACT 92.4 PG/ML (18.5-88.0); SODIUM LEVEL 137 MMOL/L (136-145); TOTAL PROTEIN 6.9 G/DL (5.7-8.2); TRIGLYCERIDES LEVEL 83 MG/DL (<150)
[2022-07-13 16:14] LABS: FOLATE > 24.00 NG/ML (>5.4); VITAMIN B12 LEVEL 1958 PG/ML (211-911)
== END ==
LOC: M PLALAB 13:31
PROVIDERS: ATTEND Family Medicine
DX: Z98.84 Bariatric surgery status (principal)

== ENCOUNTER → 2022-07-13 | Outpatient (CLI) | payer MEDICARE | LOC: M PLAIMG 13:05 | PROVIDERS: ATTEND Family Medicine | DX: R91.1 Solitary pulmonary nodule (principal) ==

== ENCOUNTER → 2022-08-19 | Outpatient (CLI) | payer MEDICARE ==
[~2022-08-19] MED LIST changes: +ISOVUE-370 76% 100ML VIAL As Ordered ONE; -ISOVUE-370 76% 100ML VIAL ONE
== END ==
LOC: M RAD 12:30
PROVIDERS: ATTEND Family Medicine
DX: M79.671 Pain in right foot (principal); M79.672 Pain in left foot; M16.0 Bilateral primary osteoarthritis of hip; L81.9 Disorder of pigmentation, unspecified; I51.7 Cardiomegaly; I25.10 Atherosclerotic heart disease of native coronary artery without angina pectoris; N20.0 Calculus of kidney; D25.9 Leiomyoma of uterus, unspecified; R60.9 Edema, unspecified
CPT/HCPCS: 75635; Q9967

== ENCOUNTER → 2022-09-07 | Outpatient (CLI) | payer MEDICARE | LOC: M RAD 14:11 | PROVIDERS: ATTEND Physician Assistant | DX: M79.89 Other specified soft tissue disorders (principal) ==

== ENCOUNTER → 2022-09-08 | Outpatient (CLI) | payer MEDICARE ==
[2022-09-08 14:10] LABS: ALBUMIN 3.4 G/DL (3.2-5.2); CALCIUM LEVEL 8.8 MG/DL (8.3-10.6); CREATININE FOR GFR 1.31 MG/DL (0.55-1.30); GLOMERULAR FILTRATION RATE 42.4 (>39); PHOSPHORUS LEVEL 4.5 MG/DL (2.4-5.1); POTASSIUM SERUM 3.5 MMOL/L (3.5-5.1)
== END ==
LOC: M PLALAB 11:40
PROVIDERS: ATTEND Physician Assistant
DX: M79.89 Other specified soft tissue disorders (principal)

== ENCOUNTER → 2022-09-08 | Outpatient (CLI) | payer MEDICARE ==
[2022-09-08 14:01] LABS: INR 0.92; PROTHROMBIN TIME 12.6 SECONDS (12.5-14.5)
[2022-09-08 14:14] LABS: THYROID STIMULATING HORMONE 0.045 uIU/ML (0.55-4.78); TOTAL 25(OH) VITAMIN D 83.7 NG/ML (20.0-100.0)
== END ==
LOC: M PLALAB 11:38
PROVIDERS: ATTEND Family Medicine
DX: R23.8 Other skin changes (principal); F33.41 Major depressive disorder, recurrent, in partial remission; E03.9 Hypothyroidism, unspecified

== ENCOUNTER → 2022-09-12 | Outpatient (CLI) | payer MEDICARE | LOC: M RAD 09:05 | PROVIDERS: ATTEND Physician Assistant | DX: M51.36 Other intervertebral disc degeneration, lumbar region (principal); M48.062 Spinal stenosis, lumbar region with neurogenic claudication; M54.16 Radiculopathy, lumbar region ==

== ENCOUNTER → 2022-09-20 | Outpatient (CLI) | payer MEDICARE | LOC: M PLAIMG 12:12 | PROVIDERS: ATTEND Neurological Surgery | DX: M51.37 Other intervertebral disc degeneration, lumbosacral region (principal); M43.16 Spondylolisthesis, lumbar region; M48.062 Spinal stenosis, lumbar region with neurogenic claudication ==

== ENCOUNTER → 2022-09-20 | Outpatient (CLI) | payer MEDICARE ==
[2022-09-20 15:31] LABS: BASO % 0.6 % (0.0-1.0); EOS # 0.2 10^3/uL (0.0-0.5); EOS % 4.4 % (0.0-3.0); HEMATOCRIT 35.5 % (36.0-47.0); HEMOGLOBIN 11.3 g/dl (12.0-15.5); LYMPH # 1.3 10^3/uL (1.5-5.0); LYMPH % 27.9 % (24.0-44.0); MEAN CORPUSCULAR HEMOGLOBIN 32.4 pg (27.0-33.0); MEAN CORPUSCULAR HGB CONC 31.8 g/dl (32.0-36.5); MEAN CORPUSCULAR VOLUME 101.7 fl (80.0-96.0); MONO # 0.5 10^3/uL (0.0-0.8); MONO % 9.9 % (2.0-8.0); NEUTROPHILS # 2.7 10^3/uL (1.5-8.5); PLATELET COUNT, AUTOMATED 218 10^3/uL (150-450); RED BLOOD COUNT 3.49 10^6/uL (4.00-5.40); WHITE BLOOD COUNT 4.7 10^3/uL (4.0-10.0)
[2022-09-20 15:38] LABS: ALBUMIN 3.4 G/DL (3.2-5.2); BILIRUBIN,TOTAL 0.5 MG/DL (0.3-1.2); CALCIUM LEVEL 8.7 MG/DL (8.3-10.6); CREATININE FOR GFR 1.16 MG/DL (0.55-1.30); GLOMERULAR FILTRATION RATE 48.8 (>39); POTASSIUM SERUM 4.6 MMOL/L (3.5-5.1); TOTAL PROTEIN 6.3 G/DL (5.7-8.2)
[2022-09-20 15:55] LABS: TOTAL PROTEIN,RANDOM URINE 7.5 MG/DL (0.0-14.0)
[2022-09-20 16:00] LABS: CREATININE,RANDOM URINE 15.8 MG/DL
== END ==
LOC: M PLALAB 13:20
PROVIDERS: ATTEND Physician Assistant
DX: M79.89 Other specified soft tissue disorders (principal)

== ENCOUNTER → 2022-09-20 | Outpatient (CLI) | payer MEDICARE | LOC: M PLAIMG 13:23 | PROVIDERS: ATTEND Physician Assistant | DX: M51.46 Schmorl's nodes, lumbar region (principal) ==

== ENCOUNTER → 2022-09-20 | Outpatient (CLI) | payer MEDICARE ==
[2022-09-20 15:31] LABS: BASO % 0.6 % (0.0-1.0); EOS # 0.2 10^3/uL (0.0-0.5); EOS % 4.5 % (0.0-3.0); HEMATOCRIT 34.9 % (36.0-47.0); HEMOGLOBIN 11.3 g/dl (12.0-15.5); LYMPH # 1.4 10^3/uL (1.5-5.0); LYMPH % 28.3 % (24.0-44.0); MEAN CORPUSCULAR HEMOGLOBIN 32.9 pg (27.0-33.0); MEAN CORPUSCULAR HGB CONC 32.4 g/dl (32.0-36.5); MEAN CORPUSCULAR VOLUME 101.7 fl (80.0-96.0); MONO # 0.6 10^3/uL (0.0-0.8); MONO % 11.2 % (2.0-8.0); NEUTROPHILS # 2.7 10^3/uL (1.5-8.5); PLATELET COUNT, AUTOMATED 211 10^3/uL (150-450); RED BLOOD COUNT 3.43 10^6/uL (4.00-5.40); WHITE BLOOD COUNT 4.9 10^3/uL (4.0-10.0)
[2022-09-20 15:35] LABS: CALCIUM LEVEL 8.8 MG/DL (8.3-10.6); CREATININE FOR GFR 1.17 MG/DL (0.55-1.30); GLOMERULAR FILTRATION RATE 48.3 (>39); POTASSIUM SERUM 4.1 MMOL/L (3.5-5.1)
[2022-09-20 15:49] LABS: INR 0.95; PROTHROMBIN TIME 12.9 SECONDS (12.5-14.5)
[2022-09-20 15:50] LABS: PARTIAL THROMBOPLASTIN TIME 27.8 SECONDS (24.8-34.2)
== END ==
LOC: M PLALAB 13:17
PROVIDERS: ATTEND Surgery Vascular Surgery
DX: I70.262 Atherosclerosis of native arteries of extremities with gangrene, left leg (principal)

== ENCOUNTER → 2022-10-07 | Outpatient (REF) | payer MEDICARE | LOC: M SFHCPLAZ 17:04 | PROVIDERS: ATTEND Physician Assistant | DX: R05.1 Acute cough (principal) ==

== ENCOUNTER → 2022-10-24 | Outpatient (CLI) | payer MEDICARE | LOC: M RAD 10:53 | PROVIDERS: ATTEND Physician Assistant | DX: M79.89 Other specified soft tissue disorders (principal); I87.8 Other specified disorders of veins ==

== ENCOUNTER → 2022-12-26 | Outpatient (REF) | payer MEDICARE | LOC: M LAB REF 16:43 | PROVIDERS: ATTEND Urology | DX: R82.998 Other abnormal findings in urine (principal) ==

== ENCOUNTER → 2023-01-02 | Outpatient (REF) | payer MEDICARE | LOC: M LAB REF 16:48 | PROVIDERS: ATTEND Urology | DX: N39.0 Urinary tract infection, site not specified (principal) ==

== ENCOUNTER → 2023-07-20 | Outpatient (REF) | payer MEDICARE ==
[2023-07-20 15:55] LABS: BASO % 0.3 % (0.0-1.0); EOS # 0.3 10^3/uL (0.0-0.5); EOS % 4.5 % (0.0-3.0); HEMATOCRIT 31.1 % (36.0-47.0); HEMOGLOBIN 9.7 g/dl (12.0-15.5); LYMPH % 33.8 % (24.0-44.0); MEAN CORPUSCULAR HEMOGLOBIN 29.4 pg (27.0-33.0); MEAN CORPUSCULAR HGB CONC 31.2 g/dl (32.0-36.5); MEAN CORPUSCULAR VOLUME 94.2 fl (80.0-96.0); MONO # 0.6 10^3/uL (0.0-0.8); MONO % 9.1 % (2.0-8.0); NEUTROPHILS # 3.2 10^3/uL (1.5-8.5); NEUTROPHILS % 52.1 % (36.0-66.0); PLATELET COUNT, AUTOMATED 284 10^3/uL (150-450)
[2023-07-20 16:03] LABS: ERYTHROCYTE SEDIMENTATION RATE 42 mm/hr (0-30)
[2023-07-20 16:16] LABS: C REACTIVE PROTEIN QUANTITATIV 3.1 MG/DL (<1.0)
[2023-07-20 16:17] LABS: BILIRUBIN,TOTAL 0.2 MG/DL (0.3-1.2); CALCIUM LEVEL 9.7 MG/DL (8.3-10.6); CREATININE FOR GFR 1.17 MG/DL (0.55-1.30); GLOMERULAR FILTRATION RATE 48.1 (>39)
== END ==
LOC: M SHH 15:30
PROVIDERS: ATTEND Internal Medicine
DX: R78.81 Bacteremia (principal); B95.5 Unspecified streptococcus as the cause of diseases classified elsewhere; G06.1 Intraspinal abscess and granuloma

== ENCOUNTER → 2023-07-24 | Outpatient (REF) | payer MEDICARE ==
[2023-07-24 13:31] LABS: BASO % 0.5 % (0.0-1.0); EOS # 0.3 10^3/uL (0.0-0.5); EOS % 3.8 % (0.0-3.0); HEMATOCRIT 30.4 % (36.0-47.0); HEMOGLOBIN 9.6 g/dl (12.0-15.5); LYMPH % 29.8 % (24.0-44.0); MEAN CORPUSCULAR HEMOGLOBIN 29.2 pg (27.0-33.0); MEAN CORPUSCULAR HGB CONC 31.6 g/dl (32.0-36.5); MEAN CORPUSCULAR VOLUME 92.4 fl (80.0-96.0); MONO # 0.7 10^3/uL (0.0-0.8); NEUTROPHILS # 3.7 10^3/uL (1.5-8.5); NEUTROPHILS % 55.7 % (36.0-66.0); PLATELET COUNT, AUTOMATED 248 10^3/uL (150-450); RED BLOOD COUNT 3.29 10^6/uL (4.00-5.40); WHITE BLOOD COUNT 6.6 10^3/uL (4.0-10.0)
[2023-07-24 13:39] LABS: ERYTHROCYTE SEDIMENTATION RATE 37 mm/hr (0-30)
[2023-07-24 13:50] LABS: C REACTIVE PROTEIN QUANTITATIV 4.1 MG/DL (<1.0)
[2023-07-24 13:52] LABS: ALBUMIN 2.9 G/DL (3.2-5.2); BILIRUBIN,TOTAL 0.2 MG/DL (0.3-1.2); CALCIUM LEVEL 9.1 MG/DL (8.3-10.6); CREATININE FOR GFR 1.26 MG/DL (0.55-1.30); GLOMERULAR FILTRATION RATE 44.2 (>39); POTASSIUM SERUM 3.5 MMOL/L (3.5-5.1)
== END ==
LOC: M SHH 12:41
PROVIDERS: ATTEND Internal Medicine
DX: G06.1 Intraspinal abscess and granuloma (principal); R78.81 Bacteremia; B95.5 Unspecified streptococcus as the cause of diseases classified elsewhere

== ENCOUNTER → 2023-07-31 | Outpatient (REF) | payer MEDICARE ==
[2023-07-31 16:56] LABS: BASO % 0.5 % (0.0-1.0); EOS # 0.2 10^3/uL (0.0-0.5); EOS % 3.8 % (0.0-3.0); HEMATOCRIT 33.3 % (36.0-47.0); HEMOGLOBIN 10.4 g/dl (12.0-15.5); LYMPH # 2.6 10^3/uL (1.5-5.0); LYMPH % 43.2 % (24.0-44.0); MEAN CORPUSCULAR HEMOGLOBIN 28.9 pg (27.0-33.0); MEAN CORPUSCULAR HGB CONC 31.2 g/dl (32.0-36.5); MEAN CORPUSCULAR VOLUME 92.5 fl (80.0-96.0); MONO # 0.5 10^3/uL (0.0-0.8); MONO % 8.5 % (2.0-8.0); NEUTROPHILS # 2.7 10^3/uL (1.5-8.5); NEUTROPHILS % 43.8 % (36.0-66.0); PLATELET COUNT, AUTOMATED 261 10^3/uL (150-450); WHITE BLOOD COUNT 6.1 10^3/uL (4.0-10.0)
[2023-07-31 17:07] LABS: ERYTHROCYTE SEDIMENTATION RATE 68 mm/hr (0-30)
[2023-07-31 17:20] LABS: C REACTIVE PROTEIN QUANTITATIV 3.2 MG/DL (<1.0)
[2023-07-31 17:22] LABS: ALBUMIN 2.9 G/DL (3.2-5.2); BILIRUBIN,TOTAL 0.2 MG/DL (0.3-1.2); CALCIUM LEVEL 9.4 MG/DL (8.3-10.6); CREATININE FOR GFR 1.15 MG/DL (0.55-1.30); GLOMERULAR FILTRATION RATE 49.1 (>39); POTASSIUM SERUM 3.7 MMOL/L (3.5-5.1)
== END ==
LOC: M SHH 16:12
PROVIDERS: ATTEND Nurse Practitioner
DX: B35.5 Tinea imbricata (principal); Z79.2 Long term (current) use of antibiotics; M46.20 Osteomyelitis of vertebra, site unspecified; R78.81 Bacteremia

== ENCOUNTER → 2023-08-07 | Outpatient (REF) | payer MEDICARE ==
[2023-08-07 16:18] LABS: BASO % 0.5 % (0.0-1.0); EOS # 0.3 10^3/uL (0.0-0.5); EOS % 4.2 % (0.0-3.0); HEMATOCRIT 34.5 % (36.0-47.0); HEMOGLOBIN 10.9 g/dl (12.0-15.5); LYMPH # 2.6 10^3/uL (1.5-5.0); LYMPH % 40.3 % (24.0-44.0); MEAN CORPUSCULAR HEMOGLOBIN 29.2 pg (27.0-33.0); MEAN CORPUSCULAR HGB CONC 31.6 g/dl (32.0-36.5); MEAN CORPUSCULAR VOLUME 92.5 fl (80.0-96.0); MONO # 0.6 10^3/uL (0.0-0.8); MONO % 9.9 % (2.0-8.0); NEUTROPHILS # 2.9 10^3/uL (1.5-8.5); NEUTROPHILS % 44.9 % (36.0-66.0); PLATELET COUNT, AUTOMATED 267 10^3/uL (150-450); RED BLOOD COUNT 3.73 10^6/uL (4.00-5.40); WHITE BLOOD COUNT 6.5 10^3/uL (4.0-10.0)
[2023-08-07 16:36] LABS: C REACTIVE PROTEIN QUANTITATIV 7.4 MG/DL (<1.0)
[2023-08-07 16:38] LABS: BILIRUBIN,TOTAL 0.4 MG/DL (0.3-1.2); CALCIUM LEVEL 9.2 MG/DL (8.3-10.6); CREATININE FOR GFR 1.01 MG/DL (0.55-1.30); POTASSIUM SERUM 3.6 MMOL/L (3.5-5.1); TOTAL PROTEIN 7.4 G/DL (5.7-8.2)
[2023-08-07 16:47] LABS: ERYTHROCYTE SEDIMENTATION RATE > 130 mm/hr (0-30)
== END ==
LOC: M SHH 16:01
PROVIDERS: ATTEND Nurse Practitioner
DX: R78.81 Bacteremia (principal); B95.5 Unspecified streptococcus as the cause of diseases classified elsewhere; M46.20 Osteomyelitis of vertebra, site unspecified; Z79.2 Long term (current) use of antibiotics

== ENCOUNTER → 2023-08-21 | Outpatient (REF) | payer MEDICARE ==
[2023-08-21 18:59] LABS: BASO % 0.3 % (0.0-1.0); EOS # 0.3 10^3/uL (0.0-0.5); EOS % 5.8 % (0.0-3.0); HEMATOCRIT 33.5 % (36.0-47.0); HEMOGLOBIN 10.6 g/dl (12.0-15.5); LYMPH # 2.7 10^3/uL (1.5-5.0); LYMPH % 46.7 % (24.0-44.0); MEAN CORPUSCULAR HEMOGLOBIN 29.2 pg (27.0-33.0); MEAN CORPUSCULAR HGB CONC 31.6 g/dl (32.0-36.5); MEAN CORPUSCULAR VOLUME 92.3 fl (80.0-96.0); MONO # 0.6 10^3/uL (0.0-0.8); MONO % 9.6 % (2.0-8.0); NEUTROPHILS # 2.2 10^3/uL (1.5-8.5); NEUTROPHILS % 37.4 % (36.0-66.0); PLATELET COUNT, AUTOMATED 263 10^3/uL (150-450); RED BLOOD COUNT 3.63 10^6/uL (4.00-5.40); WHITE BLOOD COUNT 5.8 10^3/uL (4.0-10.0)
[2023-08-21 19:22] LABS: ERYTHROCYTE SEDIMENTATION RATE 51 mm/hr (0-30)
[2023-08-21 19:23] LABS: C REACTIVE PROTEIN QUANTITATIV 1.4 MG/DL (<1.0)
[2023-08-21 19:25] LABS: ALBUMIN 3.1 G/DL (3.2-5.2); BILIRUBIN,TOTAL 0.2 MG/DL (0.3-1.2); CALCIUM LEVEL 9.2 MG/DL (8.3-10.6); CREATININE FOR GFR 1.15 MG/DL (0.55-1.30); GLOMERULAR FILTRATION RATE 49.1 (>39); POTASSIUM SERUM 5.3 MMOL/L (3.5-5.1)
== END ==
LOC: M SHH 17:45
PROVIDERS: ATTEND Internal Medicine
DX: G06.1 Intraspinal abscess and granuloma (principal); R78.81 Bacteremia; B95.5 Unspecified streptococcus as the cause of diseases classified elsewhere

== ENCOUNTER → 2023-09-04 | Outpatient (REF) | payer MEDICARE ==
[2023-09-04 18:00] LABS: BASO % 0.4 % (0.0-1.0); EOS # 0.2 10^3/uL (0.0-0.5); EOS % 3.2 % (0.0-3.0); HEMATOCRIT 34.5 % (36.0-47.0); LYMPH # 2.8 10^3/uL (1.5-5.0); LYMPH % 49.2 % (24.0-44.0); MEAN CORPUSCULAR HEMOGLOBIN 29.1 pg (27.0-33.0); MEAN CORPUSCULAR HGB CONC 31.9 g/dl (32.0-36.5); MEAN CORPUSCULAR VOLUME 91.3 fl (80.0-96.0); MONO # 0.5 10^3/uL (0.0-0.8); MONO % 8.5 % (2.0-8.0); NEUTROPHILS # 2.2 10^3/uL (1.5-8.5); NEUTROPHILS % 38.5 % (36.0-66.0); PLATELET COUNT, AUTOMATED 229 10^3/uL (150-450); RED BLOOD COUNT 3.78 10^6/uL (4.00-5.40); WHITE BLOOD COUNT 5.7 10^3/uL (4.0-10.0)
[2023-09-04 18:05] LABS: ERYTHROCYTE SEDIMENTATION RATE 27 mm/hr (0-30)
[2023-09-04 18:21] LABS: C REACTIVE PROTEIN QUANTITATIV 1.1 MG/DL (<1.0)
[2023-09-04 18:22] LABS: ALBUMIN 3.2 G/DL (3.2-5.2); BILIRUBIN,TOTAL 0.2 MG/DL (0.3-1.2); CREATININE FOR GFR 1.2 MG/DL (0.55-1.30); GLOMERULAR FILTRATION RATE 46.8 (>39); POTASSIUM SERUM 4.6 MMOL/L (3.5-5.1); TOTAL PROTEIN 7.1 G/DL (5.7-8.2)
== END ==
LOC: M SHH 17:22
PROVIDERS: ATTEND Internal Medicine
DX: R78.81 Bacteremia (principal); B95.5 Unspecified streptococcus as the cause of diseases classified elsewhere; G06.1 Intraspinal abscess and granuloma

== ENCOUNTER → 2023-09-19 | Outpatient (REF) | payer MEDICARE, MEDICAID | LOC: M LAB REF 15:40 | PROVIDERS: ATTEND Family Medicine | DX: E55.9 Vitamin D deficiency, unspecified (principal); E03.9 Hypothyroidism, unspecified; N18.31 Chronic kidney disease, stage 3a ==

== ENCOUNTER → 2023-09-19 | Outpatient (REF) | payer MEDICARE, MEDICAID ==
[2023-09-19 19:18] LABS: C REACTIVE PROTEIN QUANTITATIV < 0.40 MG/DL (<1.0)
[2023-09-19 19:20] LABS: ALBUMIN 3.4 G/DL (3.2-5.2); ALKALINE PHOSPHATASE 102 U/L (46-116); ALT/SGPT < 9 U/L (7.0-40); AST/SGOT 23 U/L (<34); BILIRUBIN,TOTAL 0.2 MG/DL (0.3-1.2); BLOOD UREA NITROGEN 49 MG/DL (9-23); CALCIUM LEVEL 8.5 MG/DL (8.3-10.6); CARBON DIOXIDE LEVEL 34 MMOL/L (20-31); CHLORIDE LEVEL 99 MMOL/L (98-107); GLOMERULAR FILTRATION RATE 46.8 (>39); GLUCOSE, FASTING 89 MG/DL (74-106); POTASSIUM SERUM 3.9 MMOL/L (3.5-5.1); SODIUM LEVEL 137 MMOL/L (136-145); TOTAL PROTEIN 6.9 G/DL (5.7-8.2)
[2023-09-19 19:31] LABS: BASO % 0.5 % (0.0-1.0); EOS # 0.2 10^3/uL (0.0-0.5); EOS % 3.7 % (0.0-3.0); HEMATOCRIT 36.2 % (36.0-47.0); HEMOGLOBIN 11.4 g/dl (12.0-15.5); LYMPH # 2.7 10^3/uL (1.5-5.0); LYMPH % 43.3 % (24.0-44.0); MEAN CORPUSCULAR HEMOGLOBIN 28.5 pg (27.0-33.0); MEAN CORPUSCULAR HGB CONC 31.5 g/dl (32.0-36.5); MEAN CORPUSCULAR VOLUME 90.5 fl (80.0-96.0); MONO # 0.6 10^3/uL (0.0-0.8); MONO % 10.4 % (2.0-8.0); NEUTROPHILS # 2.6 10^3/uL (1.5-8.5); NEUTROPHILS % 42.1 % (36.0-66.0); PLATELET COUNT, AUTOMATED 195 10^3/uL (150-450); WHITE BLOOD COUNT 6.2 10^3/uL (4.0-10.0)
[2023-09-19 19:38] LABS: ERYTHROCYTE SEDIMENTATION RATE 11 mm/hr (0-30)
== END ==
LOC: M LAB REF 15:40
PROVIDERS: ATTEND Nurse Practitioner
DX: R78.81 Bacteremia (principal); B95.5 Unspecified streptococcus as the cause of diseases classified elsewhere; M46.20 Osteomyelitis of vertebra, site unspecified; Z79.2 Long term (current) use of antibiotics

== ENCOUNTER → 2023-09-19 | Outpatient (CLI) | payer MEDICARE, MEDICAID ==
[2023-09-19 19:21] LABS: ALBUMIN 3.4 G/DL (3.2-5.2); ALKALINE PHOSPHATASE 100 U/L (46-116); ALT/SGPT 22 U/L (7.0-40); AST/SGOT 19 U/L (<34); BILIRUBIN,TOTAL 0.3 MG/DL (0.3-1.2); BLOOD UREA NITROGEN 44 MG/DL (9-23); CALCIUM LEVEL 8.5 MG/DL (8.3-10.6); CARBON DIOXIDE LEVEL 33 MMOL/L (20-31); CHLORIDE LEVEL 99 MMOL/L (98-107); CREATININE FOR GFR 1.21 MG/DL (0.55-1.30); GLOMERULAR FILTRATION RATE 46.3 (>39); GLUCOSE, FASTING 89 MG/DL (74-106); POTASSIUM SERUM 4.2 MMOL/L (3.5-5.1); SODIUM LEVEL 136 MMOL/L (136-145); TOTAL PROTEIN 6.7 G/DL (5.7-8.2)
[2023-09-19 19:22] LABS: THYROID STIMULATING HORMONE 2.356 uIU/ML (0.55-4.78); TOTAL 25(OH) VITAMIN D 76.9 NG/ML (20.0-100.0)
[2023-09-21 09:23] LABS: C REACTIVE PROTEIN QUANTITATIV < 0.40 MG/DL (<1.0)
== END ==
LOC: M PLALAB 15:22
PROVIDERS: ATTEND Family Medicine
DX: E55.9 Vitamin D deficiency, unspecified (principal); E03.9 Hypothyroidism, unspecified; N18.31 Chronic kidney disease, stage 3a

== ENCOUNTER → 2023-09-20 | Outpatient (REF) | payer MEDICARE, MEDICAID | LOC: M SFHCPLAZ 10:57 | PROVIDERS: ATTEND Family Medicine | DX: E55.9 Vitamin D deficiency, unspecified (principal); E03.9 Hypothyroidism, unspecified; N18.31 Chronic kidney disease, stage 3a ==

== ENCOUNTER → 2023-10-04 | Outpatient (CLI) | payer MEDICARE, MEDICAID | LOC: M PLAIMG 11:15 | PROVIDERS: ATTEND Family Medicine | DX: R91.1 Solitary pulmonary nodule (principal) ==

== ENCOUNTER → 2023-10-09 | Outpatient (CLI) | payer MEDICARE, MEDICAID ==
[~2023-10-09] MED LIST changes: -ISOVUE-370 76% 100ML VIAL As Ordered ONE; +PROHANCE 279.3MG/ML 15ML VIAL As Ordered ONE; +PROHANCE 279.3MG/ML 5ML VIAL As Ordered ONE
== END ==
LOC: M RAD 14:50
PROVIDERS: ATTEND Nurse Practitioner
DX: M46.20 Osteomyelitis of vertebra, site unspecified (principal); T84.7XXA Infection and inflammatory reaction due to other internal orthopedic prosthetic devices, implants and grafts, initial encounter
CPT/HCPCS: 72158; A9576

== ENCOUNTER → 2023-11-15 | Outpatient (CLI) | payer MEDICARE, MEDICAID | LOC: M RAD 09:41 | PROVIDERS: ATTEND Physician Assistant | DX: M48.062 Spinal stenosis, lumbar region with neurogenic claudication (principal); M85.88 Other specified disorders of bone density and structure, other site; Z98.1 Arthrodesis status; M51.36 Other intervertebral disc degeneration, lumbar region ==

== ENCOUNTER → 2023-11-15 | Outpatient (CLI) | payer MEDICARE, MEDICAID ==
[2023-11-15 18:43] LABS: BASO % 0.5 % (0.0-1.0); EOS # 0.3 10^3/uL (0.0-0.5); EOS % 4.5 % (0.0-3.0); HEMATOCRIT 36.4 % (36.0-47.0); LYMPH # 2.5 10^3/uL (1.5-5.0); LYMPH % 46.1 % (24.0-44.0); MONO # 0.6 10^3/uL (0.0-0.8); MONO % 10.2 % (2.0-8.0); NEUTROPHILS # 2.1 10^3/uL (1.5-8.5); NEUTROPHILS % 38.5 % (36.0-66.0); PLATELET COUNT, AUTOMATED 189 10^3/uL (150-450); WHITE BLOOD COUNT 5.5 10^3/uL (4.0-10.0)
[2023-11-15 18:47] LABS: C REACTIVE PROTEIN QUANTITATIV < 0.40 MG/DL (<1.0)
[2023-11-15 18:49] LABS: ALBUMIN 3.3 G/DL (3.2-5.2); ALKALINE PHOSPHATASE 126 U/L (46-116); ALT/SGPT 28 U/L (7.0-40); AST/SGOT 32 U/L (<34); BILIRUBIN,TOTAL 0.3 MG/DL (0.3-1.2); BLOOD UREA NITROGEN 41 MG/DL (9-23); CALCIUM LEVEL 9.3 MG/DL (8.3-10.6); CARBON DIOXIDE LEVEL 31 MMOL/L (20-31); CHLORIDE LEVEL 105 MMOL/L (98-107); CREATININE FOR GFR 1.12 MG/DL (0.55-1.30); GLOMERULAR FILTRATION RATE 50.6 (>39); GLUCOSE, FASTING 101 MG/DL (74-106); SODIUM LEVEL 140 MMOL/L (136-145); TOTAL PROTEIN 6.8 G/DL (5.7-8.2)
[2023-11-15 19:05] LABS: ERYTHROCYTE SEDIMENTATION RATE 7 mm/hr (0-30)
== END ==
LOC: M PLALAB 15:11
PROVIDERS: ATTEND Nurse Practitioner
DX: T84.7XXA Infection and inflammatory reaction due to other internal orthopedic prosthetic devices, implants and grafts, initial encounter (principal); Y93.9 Activity, unspecified; Y92.9 Unspecified place or not applicable

== ENCOUNTER → 2023-11-21 | Outpatient (REF) | payer MEDICARE, MEDICAID | LOC: M SFHCPLAZ 17:18 | PROVIDERS: ATTEND Family Medicine | DX: I10 Essential (primary) hypertension (principal) ==

== ENCOUNTER → 2024-01-24 | Outpatient (CLI) | payer MEDICARE, MEDICAID ==
[2024-01-24 18:49] LABS: BASO % 0.8 % (0.0-1.0); EOS # 0.3 10^3/uL (0.0-0.5); EOS % 5.3 % (0.0-3.0); HEMATOCRIT 37.8 % (36.0-47.0); HEMOGLOBIN 12.4 g/dl (12.0-15.5); LYMPH % 37.3 % (24.0-44.0); MEAN CORPUSCULAR HEMOGLOBIN 31.9 pg (27.0-33.0); MEAN CORPUSCULAR HGB CONC 32.8 g/dl (32.0-36.5); MEAN CORPUSCULAR VOLUME 97.2 fl (80.0-96.0); MONO # 0.6 10^3/uL (0.0-0.8); MONO % 10.9 % (2.0-8.0); NEUTROPHILS # 2.4 10^3/uL (1.5-8.5); NEUTROPHILS % 45.5 % (36.0-66.0); PLATELET COUNT, AUTOMATED 201 10^3/uL (150-450); RED BLOOD COUNT 3.89 10^6/uL (4.00-5.40); WHITE BLOOD COUNT 5.3 10^3/uL (4.0-10.0)
[2024-01-24 18:56] LABS: ERYTHROCYTE SEDIMENTATION RATE 7 mm/hr (0-30)
[2024-01-24 19:18] LABS: C REACTIVE PROTEIN QUANTITATIV < 0.40 MG/DL (<1.0)
[2024-01-24 19:20] LABS: ALBUMIN 3.6 G/DL (3.2-5.2); ALKALINE PHOSPHATASE 173 U/L (46-116); ALT/SGPT 36 U/L (7.0-40); AST/SGOT 28 U/L (<34); BILIRUBIN,TOTAL 0.4 MG/DL (0.3-1.2); BLOOD UREA NITROGEN 57 MG/DL (9-23); CARBON DIOXIDE LEVEL 32 MMOL/L (20-31); CHLORIDE LEVEL 100 MMOL/L (98-107); CREATININE FOR GFR 1.78 MG/DL (0.55-1.30); GLOMERULAR FILTRATION RATE 29.7 (>39); GLUCOSE, FASTING 80 MG/DL (74-106); POTASSIUM SERUM 4.7 MMOL/L (3.5-5.1); SODIUM LEVEL 138 MMOL/L (136-145); TOTAL PROTEIN 6.8 G/DL (5.7-8.2)
== END ==
LOC: M PLALAB 15:27
PROVIDERS: ATTEND Nurse Practitioner
DX: T84.7XXA Infection and inflammatory reaction due to other internal orthopedic prosthetic devices, implants and grafts, initial encounter (principal)

== ENCOUNTER → 2024-03-19 | Outpatient (CLI) | payer MEDICARE, MEDICAID ==
[2024-03-19 18:41] LABS: CALCIUM LEVEL 8.7 MG/DL (8.3-10.6); CREATININE FOR GFR 1.13 MG/DL (0.55-1.30); GLOMERULAR FILTRATION RATE 50.1 (>39); POTASSIUM SERUM 4.9 MMOL/L (3.5-5.1)
[2024-03-19 18:44] LABS: FREE T4 1.26 NG/DL (0.89-1.76); THYROID STIMULATING HORMONE 4.321 uIU/ML (0.55-4.78)
== END ==
LOC: M PLALAB 15:34
PROVIDERS: ATTEND Family Medicine
DX: R06.09 Other forms of dyspnea (principal); Z12.11 Encounter for screening for malignant neoplasm of colon; N18.31 Chronic kidney disease, stage 3a; Z71.3 Dietary counseling and surveillance

== ENCOUNTER 2025-03-30 16:32 | Observation (INO) | payer MEDICARE, MEDICAID ==
[~2025-03-30] VITALS: Ht 162.6 cm; Wt 88.3 kg
[2025-03-30] MEDS ORDERED: ISOVUE-370 76% 100 ML VIAL As Ordered ONE (16:53)
[2025-03-30 17:25] LABS: BASO # 0.0 10^3/uL (0.0-0.2); BASO % 0.4 % (0.0-1.0); EOS # 0.1 10^3/uL (0.0-0.5); EOS % 1.8 % (0.0-3.0); LYMPH # 1.3 10^3/uL (1.5-5.0); LYMPH % 25.9 % (24.0-44.0); MONO # 0.7 10^3/uL (0.0-0.8); MONO % 13.8 % (2.0-8.0); NEUTROPHILS # 2.9 10^3/uL (1.5-8.5); NEUTROPHILS % 57.7 % (36.0-66.0); PLATELET COUNT, AUTOMATED 204 10^3/uL (150-450)
[2025-03-30 17:31] LABS: INR 0.83
[2025-03-30 17:58] LABS: CK-MB VALUE MASS 2.8 NG/ML (<3.6)
[2025-03-30 18:02] LABS: ALT/SGPT 16.0 U/L (7.0-40); AST/SGOT 24.0 U/L (<34); CALCIUM LEVEL 9.0 MG/DL (8.3-10.6); CARBON DIOXIDE LEVEL 34.0 MMOL/L (20-31); CHLORIDE LEVEL 92.0 MMOL/L (98-107); CREATININE FOR GFR 1.12 MG/DL (0.55-1.30); GLOMERULAR FILTRATION RATE 51.3 (>39); POTASSIUM SERUM 4.2 MMOL/L (3.5-5.1); SODIUM LEVEL 134.0 MMOL/L (136-145)
[2025-03-30 18:03] LABS: FREE T4 2.19 NG/DL (0.89-1.76)
[2025-03-30 18:05] LABS: CPK CREATINE PHOSPHOKINASE 49.0 U/L (34-145); MB/CK RELATIVE INDEX 5.71 (< OR =4)
[2025-03-30 18:50] LABS: CK-MB VALUE MASS 2.3 NG/ML (<3.6)
[2025-03-30] MEDS ORDERED: ASPIRIN 81 MG CHEWABLE TABLET PO ONE (18:50)
[2025-03-30] MEDS: NS (Normal Saline) 0.9% 1,000 ML IV SCH (18:50)
[2025-03-30] MEDS ORDERED: CLOPIDOGREL 75 MG TAB PO ONE (18:50)
[2025-03-30 18:51] LABS: CPK CREATINE PHOSPHOKINASE 44.0 U/L (34-145); MB/CK RELATIVE INDEX 5.22 (< OR =4)
[2025-03-30] MEDS: ATORVASTATIN 20 MG TAB PO SCH (21:00)
[2025-03-30] MEDS: GABAPENTIN 300 MG CAP PO SCH (21:00)
[2025-03-30] MEDS ORDERED: ACETAMINOPHEN 325 MG TAB PO PRN (22:00)
[2025-03-30 22:16] LABS: CHOLESTEROL LEVEL 149.0 MG/DL (<200); CHOLESTEROL RISK RATIO 1.8 (<5); LDL CHOLESTEROL 41.6 MG/DL (<100); NON-HDL-C 66.4 MG/DL; TRIGLYCERIDES LEVEL 124.0 MG/DL (<150)
[2025-03-30 22:32] LABS: ESTIMATED AVERAGE GLUCOSE 103.0 MG/DL (60-110)
[2025-03-30] MEDS ORDERED: BISACODYL 10 MG SUPP PR PRN (22:55)
[2025-03-30] MEDS ORDERED: ACETAMINOPHEN 500 MG TAB PO PRN (22:55)
[2025-03-30] MEDS ORDERED: MIRALAX *UNIT DOSE* 17 GM PACKET PO PRN (22:55)
[2025-03-30] MEDS ORDERED: SENNA 8.6 MG TAB PO PRN (22:55)
[2025-03-30] MEDS ORDERED: PILL CUTTER 1 EACH XX PRN (23:15)
[2025-03-30] MEDS ORDERED: traZODone 50 MG TAB PO PRN (23:35)
[2025-03-30] MEDS ORDERED: ATOG60TA PO (23:37)
[2025-03-30] MEDS ORDERED: OMEP40CA5 PO (23:37)
[2025-03-30] MEDS ORDERED: TORS20TA2 PO (23:37)
[2025-03-30] MEDS ORDERED: SUMA100T2 PO (23:37)
[2025-03-30] MEDS ORDERED: GABA-1490 PO (23:37)
[2025-03-30] MEDS ORDERED: LOSA50TA28 PO (23:37)
[2025-03-30] MEDS ORDERED: RIME75TA PO (23:37)
[2025-03-30] MEDS ORDERED: LEVO175T2 (23:37)
[2025-03-30] MEDS ORDERED: OXYB10TA23 PO (23:37)
[2025-03-30] MEDS ORDERED: VERA240C5 PO (23:37)
[2025-03-30] MEDS ORDERED: BUPR450T4 PO (23:37)
[2025-03-30] MEDS ORDERED: OXYC7.5T3 PO (23:37)
[2025-03-30] MEDS ORDERED: FLUO40CA PO (23:37)
[2025-03-31] MEDS: CLOPIDOGREL 75 MG TAB PO ONE (00:27)
[2025-03-31] MEDS ORDERED: LEVOTHYROXINE 150 MCG TABLET (0.15 MG) PO SCH (06:00)
[2025-03-31] MEDS: LEVOTHYROXINE 125 MCG TABLET (0.125 MG) PO SCH (08:03)
[2025-03-31 08:08] LABS: PLATELET COUNT, AUTOMATED 217 10^3/uL (150-450)
[2025-03-31] MEDS ORDERED: LEVO137T2 PO (08:20)
[2025-03-31] MEDS ORDERED: HOME MED LIST COMPLETE! XX SCH (08:20)
[2025-03-31 08:42] LABS: CALCIUM LEVEL 9.2 MG/DL (8.3-10.6); CARBON DIOXIDE LEVEL 30.0 MMOL/L (20-31); CHLORIDE LEVEL 98.0 MMOL/L (98-107); CREATININE FOR GFR 0.99 MG/DL (0.55-1.30); GLOMERULAR FILTRATION RATE 59.5 (>39); POTASSIUM SERUM 3.7 MMOL/L (3.5-5.1); SODIUM LEVEL 139.0 MMOL/L (136-145)
[2025-03-31] MEDS ORDERED: OMEPRAZOLE 20MG CAP PO SCH (09:00)
[2025-03-31] MEDS: ASPIRIN 81 MG CHEWABLE TABLET PO SCH (09:05)
[2025-03-31] MEDS: LOSARTAN 50 MG TABLET PO SCH (09:08)
[2025-03-31] MEDS: FLUoxetine 20 MG CAP PO SCH (09:09)
[2025-03-31] MEDS: TORSEMIDE 20 MG TAB PO SCH (09:10)
[2025-03-31 10:21] VITALS: BP 137/72
[2025-03-31] MEDS: VERAPAMIL 120MG SR TAB PO SCH (10:21)
[2025-03-31] MEDS: PANTOPRAZOLE 40MG TAB PO SCH (14:23)
[2025-03-31] MEDS: GABAPENTIN 300 MG CAP PO ONE (14:23)
[2025-03-31] MEDS: buPROPion **XL** 150 MG TABLET PO SCH (14:24)
[2025-03-31] MEDS: HEPARIN SOD 5000 UNITS/ML 1 ML VIAL/SYRINGE SQ SCH (14:26)
[2025-03-31] MEDS ORDERED: ASPI81CH8 PO (14:35)
[2025-03-31] MEDS ORDERED: CLOP75TA2 PO (14:35)
[2025-03-31] MEDS ORDERED: ATOR1TAB21 PO (14:35)
[2025-03-31] MEDS: FLUZONE HIGH DOSE TRI (25-26) 0.5 ML SYRINGE IM.IMMUN ONE (16:05)
[2025-03-31 16:15] VITALS: BP 140/67; TEMP 96.8; O2SAT 99
[2025-03-31] MEDS ORDERED: GABAPENTIN 300 MG CAP PO SCH (21:00)
[2025-03-31] MEDS ORDERED: CLOPIDOGREL 75 MG TAB PO SCH (21:00)
== END 2025-03-31 16:30 | disposition home or self-care (01) ==
LOC: EDBD 16:32 → M ED 16:32 → M ED INP 16:33
PROVIDERS: ADMIT Student in an Organized Health Care Education/Training Program; ATTEND Student in an Organized Health Care Education/Training Program
DX: R47.1 Dysarthria and anarthria (principal); I66.02 Occlusion and stenosis of left middle cerebral artery; I67.82 Cerebral ischemia; I12.9 Hypertensive chronic kidney disease with stage 1 through stage 4 chronic kidney disease, or unspecified chronic kidney disease; I44.0 Atrioventricular block, first degree; E03.9 Hypothyroidism, unspecified; J45.909 Unspecified asthma, uncomplicated; K59.00 Constipation, unspecified; F32.A Depression, unspecified; N18.31 Chronic kidney disease, stage 3a; N39.41 Urge incontinence; Z87.442 Personal history of urinary calculi; I73.89 Other specified peripheral vascular diseases; M19.90 Unspecified osteoarthritis, unspecified site; G89.29 Other chronic pain; K21.9 Gastro-esophageal reflux disease without esophagitis; E66.9 Obesity, unspecified; Z98.84 Bariatric surgery status; Z86.39 Personal history of other endocrine, nutritional and metabolic disease; I73.00 Raynaud's syndrome without gangrene; M21.372 Foot drop, left foot; Z79.899 Other long term (current) drug therapy; Z79.02 Long term (current) use of antithrombotics/antiplatelets; Z79.82 Long term (current) use of aspirin; Z79.890 Hormone replacement therapy; F17.200 Nicotine dependence, unspecified, uncomplicated; Z23 Encounter for immunization
CPT/HCPCS: 36415; 70450; 70496; 70498; 70551; 71045; 80047; 80048; 80061; 80076; 82550; 82553; 83036; 84439; 84443; 84484; 85025; 85027; 85610; 85730; 90662; 93005; 93041; 93306; 93880; 94760; 96361; 96372; 96374; 97161; 99285; G0008; G0378; J2060; Q9967

== ENCOUNTER 2025-05-24 16:19 | Inpatient (IN) | payer MEDICARE, MEDICAID ==
[~2025-05-24] VITALS: Ht 162.6 cm; Wt 86.8 kg
[~2025-05-24 16:19] MED LIST changes: +ASPI-663 PO; +ASPI81CH8 PO; +ATOG60TA PO; +ATOR1TAB21 PO; +ATOR40TA75 PO; +BUPR150T12 PO; +BUPR450T4 PO; +CLOP75TA2 PO; +ELIQ5TAB PO; +ELIQ5TAB4 PO; +FLUO40CA PO; +GABA-1490 PO; +LEVO137T2 PO; +LEVO175T2; +LOSA50TA28 PO; +OMEP40CA4 PO; +OMEP40CA5 PO; +OXYB10TA23 PO; +OXYC7.5T3 PO; -PROHANCE 279.3MG/ML 15ML VIAL As Ordered ONE; -PROHANCE 279.3MG/ML 5ML VIAL As Ordered ONE; +RIME75TA PO; +SUCR1SS PO; +SUMA100T2 PO; +TORS20TA2 PO; +VERA240C5 PO
[2025-05-24 17:16] LABS: BASO # 0.0 10^3/uL (0.0-0.2); BASO % 0.2 % (0.0-1.0); EOS # 0.1 10^3/uL (0.0-0.5); EOS % 1.9 % (0.0-3.0); LYMPH # 0.7 10^3/uL (1.5-5.0); LYMPH % 16.4 % (24.0-44.0); MONO # 0.5 10^3/uL (0.0-0.8); MONO % 12.1 % (2.0-8.0); NEUTROPHILS # 2.9 10^3/uL (1.5-8.5); NEUTROPHILS % 68.9 % (36.0-66.0); PLATELET COUNT, AUTOMATED 202 10^3/uL (150-450)
[2025-05-24 17:37] LABS: INR 1.14
[2025-05-24 17:38] LABS: ALT/SGPT 27.0 U/L (7.0-40); AST/SGOT 30.0 U/L (<34); CALCIUM LEVEL 8.3 MG/DL (8.3-10.6); CARBON DIOXIDE LEVEL 29.0 MMOL/L (20-31); CHLORIDE LEVEL 100.0 MMOL/L (98-107); CREATININE FOR GFR 1.24 MG/DL (0.55-1.30); GLOMERULAR FILTRATION RATE 45.4 (>39); MAGNESIUM LEVEL 2.4 MG/DL (1.8-2.4); POTASSIUM SERUM 3.9 MMOL/L (3.5-5.1); SODIUM LEVEL 139.0 MMOL/L (136-145)
[2025-05-24] MEDS ORDERED: HOME MED LIST COMPLETE! XX SCH (18:15)
[2025-05-24] MEDS ORDERED: SUCR1ORA20 PO (18:18)
[2025-05-24] MEDS ORDERED: ACETAMINOPHEN 325 MG TAB PO PRN (18:40)
[2025-05-24 19:21] LABS: IRON (FE) 62.0 UG/DL (50-170); PERCENT SATURATION 27.1 % (13.2-45.0)
[2025-05-24 19:23] LABS: VITAMIN B12 LEVEL 752.0 PG/ML (211-911)
[2025-05-24] MEDS ORDERED: GLUCOSE 4 GM CHEW PO PRN (19:25)
[2025-05-24] MEDS ORDERED: GLUCAGON INJ 1 MG VIAL SC PRN (19:25)
[2025-05-24] MEDS ORDERED: DEXTROSE 50% 50 ML SYRINGE IV PRN (19:25)
[2025-05-24] MEDS ORDERED: MOM 30 ML SUSPENSION UDC PO PRN (19:30)
[2025-05-24] MEDS: GABAPENTIN 300 MG CAP PO SCH (22:22)
[2025-05-24] MEDS: DOCUSATE SODIUM 100 MG CAPSULE PO SCH (22:23)
[2025-05-24] MEDS: SENNA 8.6 MG TAB PO SCH (22:23)
[2025-05-24] MEDS: RAMELTEON 8 MG TAB PO SCH (22:23)
[2025-05-24] MEDS: ATORVASTATIN 20 MG TAB PO SCH (22:23)
[2025-05-24] MEDS: UNRESOLVED PATIENT OWN MED ORDER XX SCH (22:25)
[2025-05-25] MEDS: LEVOTHYROXINE 137 MCG TABLET (0.137 MG) PO SCH (06:42)
[2025-05-25 07:02] LABS: PLATELET COUNT, AUTOMATED 186 10^3/uL (150-450)
[2025-05-25 07:30] LABS: CALCIUM LEVEL 7.9 MG/DL (8.3-10.6); CARBON DIOXIDE LEVEL 28.0 MMOL/L (20-31); CHLORIDE LEVEL 105.0 MMOL/L (98-107); CREATININE FOR GFR 1.16 MG/DL (0.55-1.30); GLOMERULAR FILTRATION RATE 49.2 (>39); POTASSIUM SERUM 3.9 MMOL/L (3.5-5.1); SODIUM LEVEL 143.0 MMOL/L (136-145)
[2025-05-25] MEDS ORDERED: buPROPion **XL** 150 MG TABLET PO SCH (09:00)
[2025-05-25] MEDS: buPROPion **XL** 150 MG TABLET PO SCH (09:16)
[2025-05-25] MEDS: SUCRALFATE SUSP 1GM/10ML UD PO SCH (09:16)
[2025-05-25] MEDS: OMEPRAZOLE 20MG CAP PO SCH (09:16)
[2025-05-25] MEDS: oxyBUTYnin *XL* 5 MG TAB PO SCH (09:16)
[2025-05-25] MEDS: TORSEMIDE 20 MG TAB PO SCH (09:17)
[2025-05-25] MEDS: FLUoxetine 20 MG CAP PO SCH (09:23)
[2025-05-25] MEDS: VERAPAMIL 120MG SR TAB PO SCH (09:23)
[2025-05-25] MEDS: APIXABAN 5 MG TAB PO SCH (10:55)
[2025-05-25] MEDS: ASPIRIN 81 MG CHEWABLE TABLET PO SCH (10:55)
[2025-05-25 11:05] VITALS: BP 139/65; TEMP 98.7; O2SAT 96
[2025-05-25] MEDS ORDERED: SUMAtriptan SUCCINATE 50MG TABLET PO PRN (11:10)
[2025-05-25] MEDS: PERCOCET 5MG/325MG TAB PO PRN (12:12)
[2025-05-25 15:44] VITALS: BP_SYST 121; BP_SYST 122; BP_SYST 128; BP_DIAS 58; BP_DIAS 62; BP_DIAS 66
[2025-05-25 21:16] VITALS: BP 140/62; TEMP 98.2; O2SAT 95
[2025-05-26 05:48] VITALS: BP 134/61; TEMP 98.1; O2SAT 96
[2025-05-26 07:02] LABS: PLATELET COUNT, AUTOMATED 215 10^3/uL (150-450)
[2025-05-26 07:27] LABS: CALCIUM LEVEL 8.3 MG/DL (8.3-10.6); CARBON DIOXIDE LEVEL 30.0 MMOL/L (20-31); CHLORIDE LEVEL 101.0 MMOL/L (98-107); CREATININE FOR GFR 1.23 MG/DL (0.55-1.30); GLOMERULAR FILTRATION RATE 45.8 (>39); POTASSIUM SERUM 3.7 MMOL/L (3.5-5.1); SODIUM LEVEL 139.0 MMOL/L (136-145)
[2025-05-26 10:04] VITALS: BP_SYST 107; BP_SYST 112; BP_SYST 97; BP_DIAS 52; BP_DIAS 56; BP_DIAS 57
[2025-05-26 12:00] VITALS: BP 128/70; TEMP 98.3; O2SAT 97
[2025-05-26 20:00] VITALS: BP 139/62; TEMP 98.6; O2SAT 96
[2025-05-27] VITALS (9 sets, daily range): BP systolic 102–150; BP diastolic 54–79; TEMP 98.2–105.1; O2SAT 90–93
[2025-05-27 07:05] LABS: PLATELET COUNT, AUTOMATED 168 10^3/uL (150-450)
[2025-05-27 07:20] LABS: CALCIUM LEVEL 7.8 MG/DL (8.3-10.6); CARBON DIOXIDE LEVEL 27.0 MMOL/L (20-31); CHLORIDE LEVEL 101.0 MMOL/L (98-107); CREATININE FOR GFR 1.15 MG/DL (0.55-1.30); GLOMERULAR FILTRATION RATE 49.7 (>39); POTASSIUM SERUM 2.9 MMOL/L (3.5-5.1); SODIUM LEVEL 138.0 MMOL/L (136-145)
[2025-05-27] MEDS: POTASSIUM CHLORIDE 10MEQ SR TABLET PO ONE (09:21)
[2025-05-27] MEDS: ACETAMINOPHEN *IV* 1,000 MG in IV 1 EA IV ONE (18:11)
[2025-05-27] MEDS: NS (Normal Saline) 0.9% 1,000 ML IV ONE (18:31)
[2025-05-27 19:01] LABS: KETONE, URINE AUTO RFX NEGATIVE (NEGATIVE); LEUKOCYTE ESTERASE UR AUTO RFX 3+ (NEGATIVE); NITRITE, URINE AUTO RFX NEGATIVE (NEGATIVE); RBC, URINE AUTO RFX 17 /HPF (0-3); SQUAM EPITHELIAL CELL UR AURFX 0 /HPF (0-6); TRANSITIONAL EPITHELIAL AU RFX <1 /HPF; WBC, URINE AUTO RFX 107 /HPF (0-3)
[2025-05-27 19:51] LABS: ALT/SGPT 27.0 U/L (7.0-40); AST/SGOT 36.0 U/L (<34); CALCIUM LEVEL 7.8 MG/DL (8.3-10.6); CARBON DIOXIDE LEVEL 22.0 MMOL/L (20-31); CHLORIDE LEVEL 101.0 MMOL/L (98-107); CREATININE FOR GFR 1.09 MG/DL (0.55-1.30); GLOMERULAR FILTRATION RATE 53.0 (>39); POTASSIUM SERUM 3.3 MMOL/L (3.5-5.1); SODIUM LEVEL 136.0 MMOL/L (136-145)
[2025-05-27 20:02] LABS: PLATELET COUNT, AUTOMATED 165 10^3/uL (150-450)
[2025-05-27 20:38] LABS: LYMPHOCYTES 5 % (16-44); METAMYELOCYTES 1 % (0-0); MONOCYTES 2 % (0-5); NEUTROPHILS 77 % (28-66)
[2025-05-27 20:41] LABS: PLATELET ESTIMATE NORMAL (NORMAL)
[2025-05-27] MEDS: RAMELTEON 8 MG TAB PO PRN (20:53)
[2025-05-27] MEDS: POTASSIUM CHLORIDE 10MEQ SR TABLET PO SCH (20:53)
[2025-05-27] MEDS: PANTOPRAZOLE 40MG VIAL IV SCH (20:53)
[2025-05-27] MEDS: cefTRIAXone SOD 2 GM in DEXTROSE 5% (D5W) ADV/MINI-BAG 50 ML IV SCH (21:07)
[2025-05-28] VITALS (7 sets, daily range): BP systolic 113–137; BP diastolic 57–64; TEMP 97.2–103.3; O2SAT 94–97
[2025-05-28] MEDS: KETOROLAC 30 MG/ML 1 ML VIAL IV ONE (00:53)
[2025-05-28 06:55] LABS: CALCIUM LEVEL 7.7 MG/DL (8.3-10.6); CARBON DIOXIDE LEVEL 24.0 MMOL/L (20-31); CHLORIDE LEVEL 105.0 MMOL/L (98-107); CREATININE FOR GFR 1.22 MG/DL (0.55-1.30); GLOMERULAR FILTRATION RATE 46.3 (>39); POTASSIUM SERUM 3.1 MMOL/L (3.5-5.1); SODIUM LEVEL 142.0 MMOL/L (136-145)
[2025-05-28] MEDS: POTASSIUM CHLORIDE 10MEQ SR TABLET PO SCH (08:52)
[2025-05-29 04:51] VITALS: BP 128/71; TEMP 98.5; O2SAT 96
[2025-05-29 08:48] VITALS: BP 145/71
[2025-05-29] MEDS ORDERED: CEFD300CAP PO (11:38)
[2025-05-29] MEDS ORDERED: COLA100C5 PO (11:38)
[2025-05-29] MEDS ORDERED: POTA-136 PO ×2 (11:38→13:30)
[2025-05-29] MEDS ORDERED: GABA-1172 PO (11:38)
[2025-05-29] MEDS ORDERED: ELIQ5TAB PO (11:38)
[2025-05-29] MEDS ORDERED: SENN18TA PO (11:38)
[2025-05-29 11:56] LABS: CALCIUM LEVEL 7.6 MG/DL (8.3-10.6); CARBON DIOXIDE LEVEL 22.0 MMOL/L (20-31); CHLORIDE LEVEL 106.0 MMOL/L (98-107); CREATININE FOR GFR 1.31 MG/DL (0.55-1.30); GLOMERULAR FILTRATION RATE 42.5 (>39); POTASSIUM SERUM 2.9 MMOL/L (3.5-5.1); SODIUM LEVEL 140.0 MMOL/L (136-145)
[2025-05-29 12:00] VITALS: BP 121/59; TEMP 98.6; O2SAT 97
[2025-05-29] MEDS: POTASSIUM CHLORIDE 10MEQ SR TABLET PO ONE (12:19)
[2025-05-29] MEDS ORDERED: LEVO1TAB40 PO (13:30)
[2025-05-29] MEDS ORDERED: TORS20TA2 PO (13:37)
[2025-05-31] MEDS ORDERED: APIXABAN 5 MG TAB PO SCH (09:00)
== END 2025-05-29 15:18 | DRG 91 ==
LOC: M ED 16:19 → M ED INP 05-25 09:39 → M MSPAV 05-25 11:03
PROVIDERS: ADMIT Internal Medicine; ATTEND Internal Medicine Nephrology
DX: R29.6 Repeated falls (principal); G93.41 Metabolic encephalopathy; A41.51 Sepsis due to Escherichia coli [E. coli]; N39.0 Urinary tract infection, site not specified; I27.82 Chronic pulmonary embolism; R26.81 Unsteadiness on feet; F03.90 Unspecified dementia, unspecified severity, without behavioral disturbance, psychotic disturbance, mood disturbance, and anxiety; S01.512A Laceration without foreign body of oral cavity, initial encounter; Z99.3 Dependence on wheelchair; F32.A Depression, unspecified; E03.9 Hypothyroidism, unspecified; E11.22 Type 2 diabetes mellitus with diabetic chronic kidney disease; I12.9 Hypertensive chronic kidney disease with stage 1 through stage 4 chronic kidney disease, or unspecified chronic kidney disease; N18.30 Chronic kidney disease, stage 3 unspecified; J45.909 Unspecified asthma, uncomplicated; E11.51 Type 2 diabetes mellitus with diabetic peripheral angiopathy without gangrene; D53.9 Nutritional anemia, unspecified; E66.811 Obesity, class 1; S09.90XD Unspecified injury of head, subsequent encounter; K21.9 Gastro-esophageal reflux disease without esophagitis; R53.81 Other malaise; I73.00 Raynaud's syndrome without gangrene; M48.061 Spinal stenosis, lumbar region without neurogenic claudication; S00-T88 Injury, poisoning and certain other consequences of external causes; M48.02 Spinal stenosis, cervical region; R33.9 Retention of urine, unspecified; E87.6 Hypokalemia; R47.1 Dysarthria and anarthria; K59.00 Constipation, unspecified; D50.9 Iron deficiency anemia, unspecified; G89.4 Chronic pain syndrome; G43.909 Migraine, unspecified, not intractable, without status migrainosus; G47.00 Insomnia, unspecified; R32 Unspecified urinary incontinence; Z96.653 Presence of artificial knee joint, bilateral; Z79.891 Long term (current) use of opiate analgesic; Z79.01 Long term (current) use of anticoagulants; Z79.890 Hormone replacement therapy; Z79.899 Other long term (current) drug therapy; Z88.2 Allergy status to sulfonamides; Z98.84 Bariatric surgery status; W19.XXXA Unspecified fall, initial encounter; Y92.019 Unspecified place in single-family (private) house as the place of occurrence of the external cause; Y93.9 Activity, unspecified; Y99.8 Other external cause status

== ENCOUNTER → 2025-06-13 | Outpatient (REF) | payer MEDICARE, MEDICAID ==
[~2025-06-13] MED LIST changes: +CEFD300CAP PO; +COLA100C5 PO; +GABA-1172 PO; +LEVO1TAB40 PO; +POTA-136 PO; +SENN18TA PO; +SUCR1ORA20 PO
[2025-06-13 11:17] LABS: APPEARANCE, URINE CLOUDY (CLEAR); BACTERIA, URINE AUTO 3+ (NEGATIVE); BILIRUBIN, URINE AUTO NEGATIVE (NEGATIVE); BLOOD, URINE BLOOD 3+ (NEGATIVE); GLUCOSE, URINE (UA) AUTO NEGATIVE (NEGATIVE); KETONE, URINE AUTO NEGATIVE (NEGATIVE); LEUKOCYTE ESTERASE, URINE AUTO 2+ (NEGATIVE); NITRITE, URINE AUTO NEGATIVE (NEGATIVE); PROTEIN, URINE AUTO 1+ mg/dL (NEGATIVE); RBC, URINE AUTO 70 /HPF (0-3); SPECIFIC GRAVITY URINE AUTO 1.008 (1.002-1.035); SQUAMOUS EPITHELIAL CELL UR AU 1 /HPF (0-6); UROBILINOGEN, URINE AUTO 0.2 mg/dL (0.0-2.0); WBC, URINE AUTO TNTC /HPF (0-3)
== END ==
LOC: M SFHCPLAZ 10:24
PROVIDERS: ATTEND Family Medicine
DX: R82.90 Unspecified abnormal findings in urine (principal)

== ENCOUNTER → 2025-07-01 | Outpatient (REF) | payer MEDICARE, MEDICAID ==
[~2025-07-01] MED LIST changes: +ASPI81TA26 PO
== END ==
LOC: M SFHCPLAZ 17:11
PROVIDERS: ATTEND Family Medicine
DX: R82.90 Unspecified abnormal findings in urine (principal)

== ENCOUNTER → 2025-07-01 | Outpatient (CLI) | payer MEDICARE, MEDICAID ==
[2025-07-01 18:20] LABS: IRON (FE) 52 UG/DL (50-170)
[2025-07-01 18:24] LABS: ALT/SGPT 21 U/L (7.0-40); AST/SGOT 25 U/L (<34); CALCIUM LEVEL 9.0 MG/DL (8.3-10.6); CARBON DIOXIDE LEVEL 37 MMOL/L (20-31); CHLORIDE LEVEL 91 MMOL/L (98-107); CREATININE FOR GFR 1.24 MG/DL (0.55-1.30); GLOMERULAR FILTRATION RATE 45.4 (>39); POTASSIUM SERUM 3.5 MMOL/L (3.5-5.1); SODIUM LEVEL 136 MMOL/L (136-145); TOTAL 25(OH) VITAMIN D 61.6 NG/ML (20.0-100.0); VITAMIN B12 LEVEL > 2000 PG/ML (211-911)
[2025-07-01 18:29] LABS: BASO # 0.0 10^3/uL (0.0-0.2); BASO % 0.4 % (0.0-1.0); EOS # 0.1 10^3/uL (0.0-0.5); EOS % 1.2 % (0.0-3.0); LYMPH # 1.1 10^3/uL (1.5-5.0); LYMPH % 22.0 % (24.0-44.0); MONO # 0.4 10^3/uL (0.0-0.8); MONO % 8.4 % (2.0-8.0); NEUTROPHILS # 3.5 10^3/uL (1.5-8.5); NEUTROPHILS % 67.8 % (36.0-66.0); PLATELET COUNT, AUTOMATED 353 10^3/uL (150-450)
== END ==
LOC: M WUC 14:59
PROVIDERS: ATTEND Physician Assistant Medical
DX: A41.51 Sepsis due to Escherichia coli [E. coli] (principal); D50.9 Iron deficiency anemia, unspecified; E87.6 Hypokalemia; N18.31 Chronic kidney disease, stage 3a; N17.8 Other acute kidney failure; Z51.89 Encounter for other specified aftercare; Z98.84 Bariatric surgery status

== ENCOUNTER 2025-07-02 14:44 | Emergency (ER) | payer MEDICARE, MEDICAID ==
[~2025-07-02] VITALS: Ht 162.6 cm; Wt 80.5 kg
[~2025-07-02 14:44] MED LIST changes: -ASPI81TA26 PO
[2025-07-02 15:53] LABS: BASO # 0.0 10^3/uL (0.0-0.2); BASO % 0.4 % (0.0-1.0); EOS # 0.1 10^3/uL (0.0-0.5); EOS % 0.7 % (0.0-3.0); LYMPH # 0.5 10^3/uL (1.5-5.0); LYMPH % 6.2 % (24.0-44.0); MONO # 0.4 10^3/uL (0.0-0.8); MONO % 4.7 % (2.0-8.0); NEUTROPHILS # 7.3 10^3/uL (1.5-8.5); NEUTROPHILS % 87.6 % (36.0-66.0); PLATELET COUNT, AUTOMATED 308 10^3/uL (150-450)
[2025-07-02 16:17] LABS: CALCIUM LEVEL 8.3 MG/DL (8.3-10.6); CARBON DIOXIDE LEVEL 36.0 MMOL/L (20-31); CHLORIDE LEVEL 96.0 MMOL/L (98-107); CREATININE FOR GFR 1.28 MG/DL (0.55-1.30); GLOMERULAR FILTRATION RATE 43.7 (>39); POTASSIUM SERUM 3.8 MMOL/L (3.5-5.1); SODIUM LEVEL 137.0 MMOL/L (136-145)
[2025-07-02 19:18] VITALS: BP 134/65; TEMP 97.2; O2SAT 100
[2025-07-07] MEDS ORDERED: ELIQ5TAB PO (09:05)
[2025-07-07] MEDS ORDERED: ASPI81TA26 PO (09:05)
[2025-07-07] MEDS ORDERED: GABA-1172 PO (09:05)
== END 2025-07-02 19:30 | disposition home or self-care (01) ==
LOC: EDBD 14:44 → M ED 14:44
DX: S80.12XA Contusion of left lower leg, initial encounter (principal); T45.515A Adverse effect of anticoagulants, initial encounter; Y92.019 Unspecified place in single-family (private) house as the place of occurrence of the external cause; Y93.9 Activity, unspecified; Y99.9 Unspecified external cause status; W01.190A Fall on same level from slipping, tripping and stumbling with subsequent striking against furniture, initial encounter; E78.5 Hyperlipidemia, unspecified; E11.9 Type 2 diabetes mellitus without complications; I12.9 Hypertensive chronic kidney disease with stage 1 through stage 4 chronic kidney disease, or unspecified chronic kidney disease; F10.10 Alcohol abuse, uncomplicated; Z87.891 Personal history of nicotine dependence; Z88.2 Allergy status to sulfonamides; Z79.01 Long term (current) use of anticoagulants; Z79.1 Long term (current) use of non-steroidal anti-inflammatories (NSAID); Z79.899 Other long term (current) drug therapy

== ENCOUNTER 2025-07-05 08:43 | Emergency (ER) | payer MEDICARE, MEDICAID ==
[2025-07-05 08:59] VITALS: BP 141/64; TEMP 99.7; O2SAT 96
[2025-07-07] MEDS ORDERED: ELIQ5TAB PO (09:05)
[2025-07-07] MEDS ORDERED: ASPI81TA26 PO (09:05)
[2025-07-07] MEDS ORDERED: GABA-1172 PO (09:05)
== END 2025-07-05 09:50 | disposition home or self-care (01) ==
LOC: M ED 08:43
DX: S80.822D Blister (nonthermal), left lower leg, subsequent encounter (principal); Z88.2 Allergy status to sulfonamides; Z79.01 Long term (current) use of anticoagulants; Z79.1 Long term (current) use of non-steroidal anti-inflammatories (NSAID); Z79.899 Other long term (current) drug therapy